=== PATIENT | female | born 1990 | race Caucasian/White ===

== ENCOUNTER 2020-05-24 19:06 | Inpatient (IN) | payer MEDICAID, SELFPAY ==
--- NOTE | 2020-05-24 | ECG_ITS ---
Test Reason : CP Blood Pressure : / mmHG Vent. Rate : 099 BPM Atrial Rate : 099 BPM P-R Int : 130 ms QRS Dur : 082 ms QT Int : 344 ms P-R-T Axes : 043 020 026 degrees QTc Int : 441 ms Normal sinus rhythm Normal ECG When compared with ECG of 28-SEP-2019 07:39, No significant change was found Referred By: Generic ED Physician Electronically Signed By:DAVID ALTMAN MD
--- NOTE | ~2020-05-24 | CT_ITS ---
EXAMINATION: CT ANGIOGRAM OF THE CHEST WITH AND WITHOUT CONTRAST (CT PULMONARY ANGIOGRAM FOR PE) CLINICAL INFORMATION: Reason for Exam Elevated D-dimer, shortness of breath COMPARISON: Radiograph from the same date TECHNIQUE: Prior to contrast administration, noncontrast localization images were obtained. Subsequently, multidetector volumetric imaging was performed from the thoracic inlet to below the diaphragms following the administration of 80 mL Omnipaque 350 intravenous contrast. No contrast reaction reported Sagittal, coronal, and MIP oblique sagittal reformatted images were obtained on the CT workstation, uploaded to PACS, and reviewed. This CT examination was performed using dose optimization techniques as appropriate, variously including the following: *Automated exposure control *Adjustment of mA and/or kV according to patient size (this includes techniques or standardized protocols for targeted exams where dose is matched to indication/reason for exam; i.e. extremities or head) *Use of iterative reconstruction technique Total exam dose-length product 345 mGy-cm FINDINGS: QUALITY OF STUDY/CONTRAST BOLUS: Satisfactory. Assessment is slightly limited by respiratory motion in addition to decreased [id number] is a result of large body habitus. PULMONARY ARTERIES: No central or proximal segmental pulmonary emboli. THORACIC AORTA: No aneurysm or dissection. LUNG: Diffuse patchy rounded consolidative opacities are present throughout both lungs with hazy, groundglass attenuated margins these are more pronounced in the lower lobes. No appreciable central cavitation. Central airways are clear. No appreciable interlobular septal thickening. PLEURA: No pleural effusion or pneumothorax. MEDIASTINUM: Normal heart size. No pericardial effusion. No hilar or mediastinal lymphadenopathy. No evidence of septal bowing or right heart strain. CHEST WALL/AXILLA: No axillary or internal mammary lymphadenopathy. OSSEOUS STRUCTURES: Mild spondylosis is present in the thoracic spine. No acute fracture or malalignment. UPPER ABDOMEN: Unremarkable. No reflux of contrast into the hepatic veins to suggest elevated right heart pressures. CT/CT angio chest PE protocol IMPRESSION: Diffuse around pulmonary opacities throughout both lungs without appreciable cavitation, most likely infectious or inflammatory nature. Septic emboli are on the differential, though less likely without appreciable cavitation no evidence of acute pulmonary emboli. No pleural effusion. VTE: negative
--- NOTE | ~2020-05-24 | XR_ITS ---
EXAMINATION: XR CHEST CLINICAL INFORMATION: Chest pain. COMPARISON: 09/28/2019 chest radiographs. TECHNIQUE: Frontal view of the chest was obtained. FINDINGS: Bilateral patchy infiltrates are seen most pronounced in the right lower lung. The heart and mediastinal structures are unremarkable. XR/XR chest 1V IMPRESSION: Bilateral patchy infiltrates, right greater than left were not seen previously and suggest an acute infectious/inflammatory process
[2020-05-24 19:32] VITALS: BP 125/73; PULSE 102; RESP 20; TEMP 38.1; O2SAT 100; BMI 31.4
[2020-05-24 19:54] VITALS: BP 119/71; PULSE 98; RESP 18; O2SAT 95
--- NOTE | 2020-05-24 19:56 | PC.NURSE ---
UNLABORED AT REST. NSR ON MONITOR. AWAITING PROVIDER. SKIN PWD. LAST MOTRIN 2:30PM
--- NOTE | 2020-05-24 20:10 | ED_ITS ---
HPI - Chest Pain General Chief Complaint: Chest Pain Stated Complaint: Chest pain/SOB Source: patient Mode of arrival: ambulatory Limitations: no limitations History of Present Illness HPI narrative: 29-year-old female with no significant past medical history, diagnosed COVID positive on 05/21/2011 presents with increased shortness of breath, chest pain, chest pain on inspiration, fevers, chills, and intermittent back pain. She states that she has been feeling progressively worse, and cannot catch her breath on minimal exertion. MD complaint: chest pain Onset (ago): day(s) (Since 05/20/2020 however gradually increasing over the past day) Timing of current episode: constant Onset: during rest and during exertion Pain location: lateral Severity: moderate Pain scale (0-10): 7 Quality: tightness and aching Relieving factors: nothing Exacerbating factors: exertion, inspiration and movement Context: recent illness Associated symptoms: diaphoresis, dyspnea, fever and cough Related Data On Oral Contraceptives: No Home Medications Medication Instructions Recorded Confirmed No Known Home Meds 05/25/20 05/25/20 Allergies Allergy/AdvReac Type Severity Reaction Status Date / Time No Known Allergies Allergy Verified 05/24/20 19:31 Review of Systems Review of Systems: Constitutional: positive Fever, positive Chills, positive fatigue, positive Malaise ENT/Mouth: No sore throat, positive runny nose Eyes: No Discharge Cardiovascular: Positive Chest Pain, positive SOB, positive SOB on exertion Respiratory: Positive Cough, No Sputum, positive Wheezing, No Smoke Exposure, No Dyspnea Gastrointestinal: Positive Nausea, No Vomiting, No Diarrhea Genitourinary: no irregular bleeding, No Dysuria, No Urinary Frequency, No Hematuria, No Urinary Incontinence, No Urgency, No Flank Pain, Musculoskeletal: positive Myalgia Skin: No rash Neuro: Positive Headache Yes all other systems are reviewed and are negative PMFSH Past Medical History Attestation statement: The following information was validated with the patient. Source: old records reviewed Medical History Asthma COVID-19 Surgical History H/O tubal ligation Hx of section Social History Social History Alcohol intake: current Alcohol intake frequency: a few times a week Smoked in Last 30 Days: No Use of substances other than those prescribed or required for medical reasons: No Advance Directives: No Advance Directives Information Provided: No Physical Exam Vital Signs: Vital Signs: Last Vital Signs Temp 98.8 F 05/25/20 00:35 Pulse 90 05/25/20 00:35 Resp 18 05/25/20 00:35 BP 115/65 05/25/20 00:35 Pulse Ox 96 05/25/20 00:35 Body Mass Index 31.4 Appearance: Alert. Oriented X3. Moderate distress. Appears ill Eyes: Pupils equal, round and reactive to light. EOMI, sclera nonicteric ENT: Pharynx normal. Moist mucous membranes Neck: Normal inspection. Neck supple. Trachea midline CVS: Tachycardic heart rate and rhythm. Pulses equal to all extremities Respiratory: Mild respiratory distress. Lung sounds expiratory wheezing throughout all lobes. Abdomen: Soft and nontender. Skin: Skin flushed, warm and dry. Normal skin color. Normal skin turgor. Extremities: No lower extremity edema. Moves all extremities against resistance, strength 5/5 Neuro: No motor deficit. No sensory deficit. Cranial nerves 2-12 intact, no focal neural deficit Course Course Course Narrative: 29-year-old female tested positive for COVID-19 on 05/20/2020 presents with worsening shortness of breath, shortness of breath on exertion, lateral chest pain on inspiration, fevers, chills, malaise. Will order COVID la b panel D-dimer, will treat with dexamethasone and Toradol. vital Signs are concerning for sepsis, however patient has a known COVID viral illness will not be fluid resuscitated. D-dimer positive, will order CT PE protocol. CT scan shows multiple opacities consistent with COVID-19 verses septic emboli. Will give ceftriaxone, azithromycin, no fluid resuscitation secondary to COVID- 19 viral infection. 12:28 a.m., discussion with hospitalist regarding plan of care. Plan is to admit for COVID-19, hypoxia and septic emboli Consultations Consultation #1: edmond Time: 00:28 MDM - Chest Pain Differential Diagnosis Differential diagnosis: Likely pneumothorax, atypical chest pain, cost ochondritis and chest pain Differential diagnosis: Pneumonia, PE Medical Records Data Attestation: I reviewed the patient's medical records. Lab Data Attestation: I reviewed the patient's lab results. Result diagrams: 05/24/20 21:12 05/24/20 21:12 Labs: Lab Results 05/24/20 05/24/20 05/24/20 Range/Units 21:12 21:12 21:12 WBC 4.9 (4.8-10.8) X10*3/uL RBC 4.28 (4.20-5.50) X10*6/uL Hgb 13.3 (12.0-16.0) g/dl Hct 38.6 (37-47) % MCV 90.2 (80-98) fL MCH 31.1 (27.0-33.0) pg MCHC 34.5 (31.0-35.0) g/dl RDW 12.9 (11.0-16.0) % Plt Count 117 L (160-400) X10*3/uL MPV 11.2 (9.4-12.3) fL Immature Gran % (Auto) 0.4 (0.0-0.4) % Neut % (Auto) 67.6 (45-73) % Lymph % (Auto) 24.5 (20-40) % [place] % (Auto) 7.3 (2-11) % Eos % (Auto) 0.0 (0-4) % Baso % (Auto) 0.2 (0-2) % Lymph # (Auto) 1.2 (1.2-4.9) X10*3/uL [place] # (Auto) 0.4 (0.1-1.2) X10*3/uL Eos # (Auto) 0.0 (0.0-0.4) X10*3/uL Baso # (Auto) 0.0 (0.0-0.2) X10*3/uL Abs Immat Gran (auto) 0.02 (0.00-0.03) X10*3/uL Absolute Neuts (auto) 3.3 (2.0-8.3) X10*3/uL Absolute Nucleated RBC 0.000 (0.0-0.012) X10*3/uL Nucleated RBC % (auto) 0.0 (0.0-0.2) /100WBC Smear Tech's Comments VERIFIED PT 13.8 H (10.8-13.0) SEC INR 1.2 H (0.9-1.1) APTT 30.3 (24.1-38.0) SEC D-Dimer 372 NG/ML Sodium 136 (135-145) mmol/L Potassium 3.8 (3.3-5.1) mmol/L Chloride 103 (96-108) mmol/L Carbon Dioxide 22 (22-29) mmol/L Anion Gap 15 (12-20) BUN 11 (9-16) mg/dL Creatinine 0.69 (0.5-1.4) mg/dL Estim Creat Clear Calc 152.1 Estimated GFR > 60 Random Glucose 84 (60-115) mg/dL Lactic Acid (0.5-2.0) mmol/L Calcium 8.1 L (8.4-10.2) mg/dL Ferritin 706 H (10-122) ng/mL Total Bilirubin 0.9 (0.0-1.0) mg/dL Direct Bilirubin 0.3 (0.0-0.5) mg/dL AST 95 H (5-31) U/L ALT 122 H (0-31) U/L Alkaline Phosphatase 91 (39-117) U/L Lactate Dehydrogenase 379 H (122-220) U/L C-Reactive Protein 6.30 H (< or = 0.50) mg/dL Total Protein 6.9 (6.5-8.0) g/dL Albumin 3.9 (3.5-5.0) g/dL Lipase 34 (8-78) U/L Procalcitonin ng/mL Urine Color Urine Appearance Urine pH (5.0-8.0) Ur Specific [place] (1.005-1.025) Urine Protein (NEG-TRACE) MG/DL Urine Glucose (UA) (NEG) MG/DL Urine Ketones (NEG) MG/DL Urine Blood (NEG) Urine Nitrite (NEG) Ur Leukocyte Esterase (NEG) 05/24/20 05/24/20 05/25/20 Range/Units 21:12 22:10 00:44 WBC (4.8-10.8) X10*3/uL RBC (4.20-5.50) X10*6/uL Hgb (12.0-16.0) g/dl Hct (37-47) % MCV (80-98) fL MCH (27.0-33.0) pg MCHC (31.0-35.0) g/dl RDW (11.0-16.0) % Plt Count (160-400) X10*3/uL MPV (9.4-12.3) fL Immature Gran % (Auto) (0.0-0.4) % Neut % (Auto) (45-73) % Lymph % (Auto) (20-40) % [place] % (Auto) (2-11) % Eos % (Auto) (0-4) % Baso % (Auto) (0-2) % Lymph # (Auto) (1.2-4.9) X10*3/uL [place] # (Auto) (0.1-1.2) X10*3/uL Eos # (Auto) (0.0-0.4) X10*3/uL Baso # (Auto) (0.0-0.2) X10*3/uL Abs Immat Gran (auto) (0.00-0.03) X10*3/uL Absolute Neuts (auto) (2.0-8.3) X10*3/uL Absolute Nucleated RBC (0.0-0.012) X10*3/uL Nucleated RBC % (auto) (0.0-0.2) /100WBC Smear Tech's Comments PT (10.8-13.0) SEC INR (0.9-1.1) APTT (24.1-38.0) SEC D-Dimer NG/ML Sodium (135-145) mmol/L Potassium (3.3-5.1) mmol/L Chloride (96-108) mmol/L Carbon Dioxide (22-29) mmol/L Anion Gap (12-20) BUN (9-16) mg/dL Creatinine (0.5-1.4) mg/dL Estim Creat Clear Calc Estimated GFR Random Glucose (60-115) mg/dL Lactic Acid 0.6 (0.5-2.0) mmol/L Calcium (8.4-10.2) mg/dL Ferritin (10-122) ng/mL Total Bilirubin (0.0-1.0) mg/dL Direct Bilirubin (0.0-0.5) mg/dL AST (5-31) U/L ALT (0-31) U/L Alkaline Phosphatase (39-117) U/L Lactate Dehydrogenase (122-220) U/L C-Reactive Protein (< or = 0.50) mg/dL Total Protein (6.5-8.0) g/dL Albumin (3.5-5.0) g/dL Lipase (8-78) U/L Procalcitonin 0.07 ng/mL Urine Color YELLOW Urine Appearance CLEAR Urine pH 6.0 (5.0-8.0) Ur Specific [place] 1.025 (1.005-1.025) Urine Protein NEG (NEG-TRACE) MG/DL Urine Glucose (UA) NEG (NEG) MG/DL Urine Ketones 40 (NEG) MG/DL Urine Blood NEG (NEG) Urine Nitrite NEG (NEG) Ur Leukocyte Esterase NEG (NEG) Imaging Data Chest PE: Attestation: I personally reviewed and interpreted this imaging study as follows: Radiologist's impression: EXAMINATION: CT ANGIOGRAM OF THE CHEST WITH AND WITHOUT CONTRAST (CT PULMONARY ANGIOGRAM FOR PE) CLINICAL INFORMATION: Reason for Exam Elevated D-dimer, shortness of breath COMPARISON: Radiograph from the same date TECHNIQUE: Prior to contrast administration, noncontrast localization images were obtained. Subsequently, multidetector volumetric imaging was performed from the thoracic inlet to below the diaphragms following the administration of 80 mL Omnipaque 350 intravenous contrast. No contrast reaction reported Sagittal, coronal, and MIP oblique sagittal reformatted images were obtained on the CT workstation, uploaded to PACS, and reviewed. This CT examination was performed using dose optimization techniques as appropriate, variously including the following: *Automated exposure control *Adjustment of mA and/or kV according to patient size (this includes techniques or standardized protocols for targeted exams where dose is matched to indication/reason for exam; i.e. extremities or head) *Use of iterative reconstruction technique Total exam dose-length product 345 mGy-cm FINDINGS: QUALITY OF STUDY/CONTRAST BOLUS: Satisfactory. Assessment is slightly limited by respiratory motion in addition to decreased [id number] is a result of large body habitus. PULMONARY ARTERIES: No central or proximal segmental pulmonary emboli. THORACIC AORTA: No aneurysm or dissection. LUNG: Diffuse patchy rounded consolidative opacities are present throughout both lungs with hazy, groundglass attenuated margins these are more pronounced in the lower lobes. No appreciable central cavitation. Central airways are clear. No appreciable interlobular septal thickening. PLEURA: No pleural effusion or pneumothorax. MEDIASTINUM: Normal heart size. No pericardial effusion. No hilar or mediastinal lymphadenopathy. No evidence of septal bowing or right heart strain. CHEST WALL/AXILLA: No axillary or internal mammary lymphadenopathy. OSSEOUS STRUCTURES: Mild spondylosis is present in the thoracic spine. No acute fracture or malalignment. UPPER ABDOMEN: Unremarkable. No reflux of contrast into the hepatic veins to suggest elevated right heart pressures. CT/CT angio chest PE protocol IMPRESSION: Diffuse around pulmonary opacities throughout both lungs without appreciable cavitation, most likely infectious or inflammatory nature. Septic emboli are on the differential, though less likely without appreciable cavitation no evidence of acute pulmonary emboli. No pleural effusion. VTE: negative Chest x-ray: Attestation: I personally reviewed and interpreted this imaging study as follows: Radiologist's impression: EXAMINATION: XR CHEST CLINICAL INFORMATION: Chest pain. COMPARISON: 09/28/2019 chest radiographs. TECHNIQUE: Frontal view of the chest was obtained. FINDINGS: Bilateral patchy infiltrates are seen most pronounced in the right lower lung. The heart and mediastinal structures are unremarkable. XR/XR chest 1V IMPRESSION: Bilateral patchy infiltrates, right greater than left were not seen previously and suggest an acute infectious/inflammatory process ECG Data ECG #1: Attestation: I personally reviewed and interpreted this ECG as follows: ECG interpretation date: 05/24/20 ECG interpretation time: 19:50 Interpretation: Vent. rate 99 BPM VT interval 130 ms QRS duration 82 ms QT/QTc 344/441 ms P-R-T axes 43 20 26 Normal sinus rhythm Normal ECG When compared with ECG of 28-SEP-2019 07:39, No significant change was found Critical Care Time Critical Care Time Critical Care Time: Yes Total Critical Care Time: 60 Attestation: I have personally provided critical care time exclusive of time spent on separately billable procedures. Time includes review of laboratory data, radiology results, discussion with consultants, and monitoring for potential decompensation. Interventions were performed as documented. Discharge Plan Discharge Clinical Impression: Pneumonia due to COVID-19 virus, Septic embolism Patient Disposition: Admitted As Inpatient Prescriptions: No Action No Known Home Meds RF: 0
[2020-05-24 21:04] VITALS: BP 125/78; PULSE 95; RESP 26; O2SAT 99
[2020-05-24 21:21] LABS: Basophils Percent Auto 0.2 % (0-2); Imm Gran Abs Auto 0.02 X10*3/uL (0.00-0.03); Imm Gran Pct Auto 0.4 % (0.0-0.4); MANUAL DIFF FLAG SCAN; PLT CLUMP 1; SCAN SMEAR FLAG 1
[2020-05-24] MEDS: Ketorolac Tromethamine 30 MG/ML VIAL IVPUSH (21:22)
[2020-05-24 21:23] LABS: Hematocrit 38.6 % (37-47); Hemoglobin 13.3 g/dl (12.0-16.0); Lymphocytes Absolute Auto 1.2 X10*3/uL (1.2-4.9); Lymphocytes Percent Auto 24.5 % (20-40); Mean Corpuscular HGB Conc 34.5 g/dl (31.0-35.0); Mean Corpuscular Hemoglobin 31.1 pg (27.0-33.0); Mean Corpuscular Volume 90.2 fL (80-98); Mean Platelet Volume 11.2 fL (9.4-12.3); Monocytes Absolute Auto 0.4 X10*3/uL (0.1-1.2); Monocytes Percent Auto 7.3 % (2-11); Neutrophils Absolute Auto 3.3 X10*3/uL (2.0-8.3); Neutrophils Percent Auto 67.6 % (45-73); Red Blood Count 4.28 X10*6/uL (4.20-5.50); Red Cell Distribution Width 12.9 % (11.0-16.0); White Blood Count 4.9 X10*3/uL (4.8-10.8)
[2020-05-24] MEDS: dexAMETHasone sod phosphate 4 MG/ML VIAL 6 MG IVPUSH (21:23)
--- NOTE | 2020-05-24 21:23 | PC.NURSE ---
PT IN NO9 DISTRESS, SPO2 99% ROOM AIR AND PT IN A SUPINE POSITION. PT GIVEN WATER TO HYDRATE, AND TO OBTAIN URINE SAMPLE.
[2020-05-24 21:24] LABS: Platelet Count 117 X10*3/uL (160-400)
[2020-05-24 21:26] LABS: INTERNATIONAL NORM RATIO 1.2 (0.9-1.1); Prothrombin Time 13.8 SEC (10.8-13.0)
[2020-05-24 21:29] LABS: D Dimer 372 NG/ML; Partial Thromboplastin Time 30.3 SEC (24.1-38.0)
[2020-05-24 21:48] LABS: SLIDE REVIEW VERIFIED
[2020-05-24 21:50] LABS: Alanine Aminotransferase 122 U/L (0-31); Albumin Level 3.9 g/dL (3.5-5.0); Alkaline Phosphatase 91 U/L (39-117); Anion Gap 15 (12-20); Aspartate Amino Transferase 95 U/L (5-31); Bilirubin Direct 0.3 mg/dL (0.0-0.5); Bilirubin Total 0.9 mg/dL (0.0-1.0); Blood Urea Nitrogen 11 mg/dL (9-16); Calcium 8.1 mg/dL (8.4-10.2); Carbon Dioxide 22 mmol/L (22-29); Chloride 103 mmol/L (96-108); Creatinine Clr Calc Pharmacy 152.1; Estimated Glomerular Filt Rate > 60; Glucose Random 84 mg/dL (60-115); Lactate Dehydrogenase 379 U/L (122-220); Lipase 34 U/L (8-78); Potassium 3.8 mmol/L (3.3-5.1); Sodium 136 mmol/L (135-145); Total Protein 6.9 g/dL (6.5-8.0)
[2020-05-24 22:08] VITALS: BP 111/70; PULSE 109; RESP 21; TEMP 37.6; O2SAT 98
[2020-05-24 22:10] LABS: Ferritin 706 ng/mL (10-122)
[2020-05-24 22:13] LABS: Procalcitonin 0.07 ng/mL
[2020-05-24 22:24] LABS: Glucose Urine UA NEG (NEG); Leukocyte Esterase Urine NEG (NEG); Nitrite Urine NEG (NEG); Specific Gravity - Urine 1.025 (1.005-1.025); Urine Blood NEG (NEG); Urine Ketones 40 MG/DL (NEG); Urine Protein NEG (NEG-TRACE)
[2020-05-24 22:26] LABS: Appearance Urine CLEAR; Color Urine YELLOW
[2020-05-25] VITALS (8 sets, daily range): BP systolic 109–129; BP diastolic 65–78; PULSE 63–90; RESP 16–20; TEMP 36.4–37.2; O2SAT 95–97
--- NOTE | 2020-05-25 00:34 | P.HPHOSP_ITS ---
History of Present Illness Date of Service: 05/25/20 Chief Complaint: Chest pain 29-year-old female with a past medical history of asthma presented to the hospital with a chief complaint of chest pain. Patient mentioned that she has been having shortness of breath, was diagnosed with COVID-19 pneumonia on 05/20/2020; lately noted to have increased shortness of breath and dyspnea on exertion. Mentions that she has tired. Reports that her chest pain is sharp in nature, worsens with deep inspiration. Denies any numbness tingling. Reports cough. Denies any diarrhea. Review of all other systems is negative except mentioned above ER course: Per ER team patient was noted to be tachycardic and have low-grade temperatures. CT scan showed opacities concern for septic emboli; no evidence of pulmonary embolism. Patient was given ceftriaxone azithromycin and dexamethasone. Admitted to the hospital for further management. ER team and also mentioned that patient denied any IV drug abuse except for remote use of weeping. REPLACED BY [facility] Medical History Asthma COVID-19 Surgical History H/O tubal ligation Hx of section Social History Alcohol intake: current Alcohol intake frequency: a few times a week Smoked in Last 30 Days: No Use of substances other than those prescribed or required for medical reasons: No Advance Directives: No Advance Directives Information Provided: No Meds Allergies Allergy/AdvReac Type Severity Reaction Status Date / Time No Known Allergies Allergy Verified 05/24/20 19:31 Active Medications: Current Medications Generic Name Dose Route Start Last Admin Trade Name Freq PRN Reason Stop Dose Admin Acetaminophen 650 mg 05/25/20 00:28 Acetaminophen 325 Mg Tablet PO Q6H PRN Pain, Mild (Pain Scale 1-3) Albuterol Sulfate 4 puff 05/25/20 00:31 Albuterol Sulfate 90 Mcg 8 Gm Inhaler INHALE Q2H PRN Shortness of Breath/Wheezing Azithromycin 500 mg 05/25/20 00:30 Azithromycin 500 Mg Tablet PO Q24H BERT Dexamethasone 6 mg 05/25/20 09:00 Dexamethasone 6 Mg Tablet PO DAILY BERT Enoxaparin Sodium 40 mg 05/25/20 00:30 Enoxaparin Sodium 40 Mg/0.4 Ml Syringe SUBCUT Q24H BERT Ceftriaxone Sodium 1 gm/ 50 mls @ 100 mls/hr 05/25/20 00:20 Sodium Chloride IV 05/25/20 00:49 ONCE ONE Ceftriaxone Sodium 1 gm/ 50 mls @ 100 mls/hr 05/25/20 00:30 Sodium Chloride IV Q24H BERT Senna 17.2 mg 05/25/20 00:28 Sennosides 8.6 Mg Tablet PO BEDTIME PRN Constipation Sodium Chloride 3 ml 05/25/20 08:00 0.9 % Sodium Chloride Flush 3 Ml Syringe IVFLUSH QSHIFT [facility] Home Medications Medication Instructions Recorded Confirmed Last Taken Type No Known Home Meds 05/25/20 05/25/20 Unknown History Physical Exam Vital Signs and Narrative: Vital Signs: Last Vital Signs Temp 99.7 F 05/24/20 22:08 Pulse 109 H 05/24/20 22:08 Resp 21 H 05/24/20 22:08 BP 111/70 05/24/20 22:08 Pulse Ox 98 05/24/20 22:08 Body Mass Index 31.4 Gen: Appears be in no acute distress HEENT: NCAT, Moist mucosa. Pulmonary: Course breath sounds, fair air entry CVS: Normal S1-S2 Abdomen: BS+, Soft, Nontender Extremities: Warm well perfused Neuro: Alert and awake. Results Labs CBC and Chem 7: 05/24/20 21:12 05/24/20 21:12 Labs: Laboratory Results - last 24 hr 05/24/20 05/24/20 05/24/20 21:12 21:12 21:12 MCV 90.2 MCH 31.1 MCHC 34.5 RDW 12.9 Plt Count 117 L MPV 11.2 Immature Gran % (Auto) 0.4 Neut % (Auto) 67.6 Lymph % (Auto) 24.5 [place] % (Auto) 7.3 Eos % (Auto) 0.0 Baso % (Auto) 0.2 Lymph # (Auto) 1.2 [place] # (Auto) 0.4 Eos # (Auto) 0.0 Baso # (Auto) 0.0 Abs Immat Gran (auto) 0.02 Absolute Neuts (auto) 3.3 Absolute Nucleated RBC 0.000 Nucleated RBC % (auto) 0.0 Smear Tech's Comments VERIFIED PT 13.8 H INR 1.2 H APTT 30.3 D-Dimer 372 Anion Gap 15 Estim Creat Clear Calc 152.1 Estimated GFR > 60 Random Glucose 84 Calcium 8.1 L Ferritin 706 H Total Bilirubin 0.9 Direct Bilirubin 0.3 AST 95 H ALT 122 H Alkaline Phosphatase 91 Lactate Dehydrogenase 379 H C-Reactive Protein 6.30 H Total Protein 6.9 Albumin 3.9 Lipase 34 Procalcitonin Urine Color Urine Appearance Urine pH Ur Specific [place] Urine Protein Urine Glucose (UA) Urine Ketones Urine Blood Urine Nitrite Ur Leukocyte Esterase 05/24/20 05/24/20 21:12 22:10 MCV MCH MCHC RDW Plt Count MPV Immature Gran % (Auto) Neut % (Auto) Lymph % (Auto) [place] % (Auto) Eos % (Auto) Baso % (Auto) Lymph # (Auto) [place] # (Auto) Eos # (Auto) Baso # (Auto) Abs Immat Gran (auto) Absolute Neuts (auto) Absolute Nucleated RBC Nucleated RBC % (auto) Smear Tech's Comments PT INR APTT D-Dimer Anion Gap Estim Creat Clear Calc Estimated GFR Random Glucose Calcium Ferritin Total Bilirubin Direct Bilirubin AST ALT Alkaline Phosphatase Lactate Dehydrogenase C-Reactive Protein Total Protein Albumin Lipase Procalcitonin 0.07 Urine Color YELLOW Urine Appearance CLEAR Urine pH 6.0 Ur Specific [place] 1.025 Urine Protein NEG Urine Glucose (UA) NEG Urine Ketones 40 Urine Blood NEG Urine Nitrite NEG Ur Leukocyte Esterase NEG Imaging Radiologist's Impressions: Impressions Chest X-Ray 05/24/20 19:40 IMPRESSION: Bilateral patchy infiltrates, right greater than left were not seen previously and suggest an acute infectious/inflammatory process Chest CTA 05/24/20 21:54 IMPRESSION: Diffuse around pulmonary opacities throughout both lungs without appreciable cavitation, most likely infectious or inflammatory nature. Septic emboli are on the differential, though less likely without appreciable cavitation no evidence of acute pulmonary emboli. No pleural effusion. VTE: negative Assessment and Plan (1) Pneumonia due to COVID-19 virus: Status: Acute 29-year-old female with a past medical history of asthma presented to the hospital with a chief complaint of shortness of breath/chest pain. Chest pain: Atypical in nature. Pleuritic. CT showed no evidence of PE. Noted pulmonary opacities concern for septic emboli. Troponins negative EKG nonischemic COVID-19 pneumonia: Continue ceftriaxone, azithromycin, dexamethasone. Supplemental oxygen p.r.n.. Id consult for further recommendations. Abnormal CT chest: Findings concerning for septic emboli. Will consult pulmonology as well. DVT prophylaxis: Lovenox Code status: Full code
--- NOTE | 2020-05-25 00:37 | PC.NURSE ---
PT PLACED ON 2 LPM 02 VIA NC PER REQUEST OF PROVIDER. PT DENIES DYSPNEA WHILE SEATED IN BED.
[2020-05-25] MEDS: Azithromycin 500 MG TABLET PO ×2 (01:06→20:43)
[2020-05-25] MEDS: cefTRIAXone sodium 1 GM in 0.9 % Sodium Chloride 50 ML IV (01:07)
[2020-05-25 01:17] LABS: Lactic Acid 0.6 mmol/L (0.5-2.0)
--- NOTE | 2020-05-25 01:37 | PC.NURSE ---
PT 100% ON 2 LPM NC. HOSPITALIST WANTS OXYGEN DC'D. PT'S CAN BE ROOM AIR UNLESS SPO2 LESS THAN 95%.
[2020-05-25 02:09] LABS: COVID-19 Test Positive (Negative)
[2020-05-25] MEDS: Enoxaparin Sodium 40 MG/0.4 ML SYRINGE SUBCUT (02:09)
--- NOTE | 2020-05-25 03:44 | PC.NURSE ---
PT UNDERSTANDS THAT SHE WILL BE ADMITTED TO FLOOR, BUT MAY NOT HAVE A ROOM ASSIGNMENT UNTIL 7AM. PT OFFERED SODA, JUICE AND WATER BUT NOT INTERESTED IN ANYTHING TO EAT OR DRINK. PT WAS GIVEN 8OZ WATER EARLIER, BUT ONLY FINISHED 4 OZ.
--- NOTE | 2020-05-25 07:06 | PC.NURSE ---
REPORT GIVEN TO RN ON FLOOR, PT READY FOR TRANSPORT. PT ENCOURAGE TO CONTINUE TO HYDRATE. PT ASKED FOR 2 CONTAINERS OF OJ, NOT INTERESTED IN FOOD.
[2020-05-25] MEDS: dexAMETHasone 6 MG TABLET PO (08:24)
[2020-05-25] MEDS: 0.9 % Sodium Chloride Flush 3 ML SYRINGE IVFLUSH ×2 (08:24→15:13)
--- NOTE | 2020-05-25 09:13 | MHC.CM.PN ---
Female 29 dx Covid+ She lives with family. She is independent with all functional mobility. A HCP has been documented, and placed on the chart. DP home no services family transport. CM will follow to assess for a change in the discharge needs.
[2020-05-25 09:33] LABS: MANUAL DIFF FLAG NO
[2020-05-25 09:46] LABS: Hemoglobin 14.2 g/dl (12.0-16.0); Imm Gran Abs Auto 0.01 X10*3/uL (0.00-0.03); Imm Gran Pct Auto 0.3 % (0.0-0.4); Lymphocytes Absolute Auto 0.8 X10*3/uL (1.2-4.9); Lymphocytes Percent Auto 28.3 % (20-40); Mean Corpuscular Volume 90.7 fL (80-98); Monocytes Absolute Auto 0.2 X10*3/uL (0.1-1.2); Monocytes Percent Auto 7.2 % (2-11); Neutrophils Absolute Auto 1.9 X10*3/uL (2.0-8.3); Neutrophils Percent Auto 64.2 % (45-73); Platelet Count 143 X10*3/uL (160-400); Red Blood Count 4.74 X10*6/uL (4.20-5.50); Red Cell Distribution Width 12.8 % (11.0-16.0); White Blood Count 2.9 X10*3/uL (4.8-10.8)
[2020-05-25 10:09] LABS: Anion Gap 12 (12-20); Blood Urea Nitrogen 12 mg/dL (9-16); Calcium 8.4 mg/dL (8.4-10.2); Carbon Dioxide 27 mmol/L (22-29); Chloride 103 mmol/L (96-108); Creatinine Clr Calc Pharmacy 141.8; Estimated Glomerular Filt Rate > 60; Glucose Random 158 mg/dL (60-115); Magnesium 2.4 mg/dL (1.6-2.6); Potassium 4.7 mmol/L (3.3-5.1); Sodium 137 mmol/L (135-145)
--- NOTE | 2020-05-25 10:30 | CA_ITS ---
Transthoracic Echocardiogram Patient (Last, First, Middle): Mendez Marie, Gender: Female Date of : 1990 Age: 29 Procedure Date: 05/25/2020 Procedure Type: Transthoracic Echocardiogram Location: [facility] [place] Height: 177.8 cm Weight: 99.34 kg BSA: 2.17 m2 Heart Rate: bpm BP: 115 / 65 mmHg Correctional Cook: Referring MD: Tony Green MD Light Rail Train Operator: Elvis Davis MD Symptoms: covid; ?septic emboli; ?vegetation Study Quality: Fair ECG Rhythm: Sinus Conclusions: - 1. No clear vegetations seen on this study, however valves are not completely well visualized. 2. Normal LV systolic and diastolic function 3. Normal cardiac valvular Doppler 4. Normal RV systolic pressure 5. No gross pericardial effusion Findings Left Ventricle Normal left ventricular size, thickness, and systolic function. The visually estimated ejection fraction is between 55-60%. Diastolic function is normal for age. Right Ventricle Normal right ventricular cavity size and systolic function. Atria Both atria are normal in size. Interatrial shunt cannot be excluded. Aortic Valve The aortic valve was not well visualized. There is no aortic valve stenosis. There is no aortic valve regurgitation. Mitral Valve Likely normal mitral valve structure and function. There is trace mitral valve regurgitation. There is no mitral valve stenosis. Pulmonic Valve The pulmonic valve was not well visualized. Tricuspid Valve The tricuspid valve was not well visualized. There is trace tricuspid valve regurgitation. The right ventricular systolic pressure is normal. The right ventricular systolic pressure is 23 mmHg. Normal right atrial pressure. There is no evidence of pulmonary hypertension. Great Vessels All visible segments of the aorta are normal in size. The pulmonary artery was not well visualized. Venous The inferior vena cava is normal in size and collapses greater than 50% with inspiration. Pericardium/Pleural There is no evidence of pericardial effusion. Prior Study Comparison No prior study available for comparison. Recommendations, Care & Conclusions Consider a AMRITA if clinically appropriate. Measurements 2D Linear Measurements IVSd: 0.90 0.6-0.9/0.6-1.0 cm LVIDd: 5.15 3.9-5.3/4.2-5.9 cm LVIDd Index: 2.37 2.4-3.2/2.2-3.1 cm/m2 LVIDs: 3.65 2.0-3.6 cm LVPWd: 0.98 0.7-1.1 cm Ao Root: 3.20 2.1-3.5 cm LA Diam: 3.50 2.7-3.8/3.0-4.0 cm LAIDs Index: 1.61 1.5-2.3 cm/m2 LV Mass: 219.12 67-162/88-224 g LV Mass Index: 100.98 43-95/49-115 g/m2 LVOT Diam: 2.20 3.0+(-)1.3 cm 2D Systolic Function EF 4C: 56.40 >55% EF 2C: 50.10 >55% Mitral Valve MV Pk E: 0.84 MV PK A: 0.65 MV Decel Time: 222.00 E/A: 1.30 E'Lateral: 13.20 E'Medial: 9.86 E/E' Med: 8.50 E/E' Lat: 6.40 PHT: 65.00 MVA PHT: 3.38 Decel [place]: 3.78 Aortic Valve AoV Pk Corey: 1.41 AoV Mn Corey: 0.90 AoV VTI: 0.28 AoV Pk Grad: 8.00 Aov Mn Grad: 4.00 CLARA Cont.VTI: 3.11 LVOT LVOT Pk Corey: 1.20 LVOT Mn Corey: 0.73 LVOT VTI: 0.23 LVOT Pk Grad: 6.00 LVOT Mn Grad: 3.00 LVOT Diam: 2.20 LVOT Area: 3.80 Diastolic Function MV Pk E: 0.84 MV Pk A: 0.65 E/A: 1.30 E'Medial: 9.86 E/E' Med: 8.50 E' Laterial: 13.20 E/E' Lat: 6.40 Tricuspid Valve TR Pk Corey: 2.21 TR Pk Grad: 20.00 RA Press: 3.00 RVSP: 23.00 Great Vessels Aorta Ao Root-2D: 3.20 2.0-3.7 cm Ao Asc: 2.90 2.1-3.4 cm Pulmonary Valve PV Pk Corey: 0.95 Peak PV Grad: 4.00 Updated in Other Vendor System with Status of Final Elvis Davis MD electronically signed on 05/25/2020 5:10:10 PM with status of Final
[2020-05-25 13:15] LABS: Amphetamine Screen Urine Not Detected (Not Detect); Barbiturates, Urine Not Detected (Not Detect); Benzodiazepines Screen Urine Not Detected (Not Detect); Cannabinoid Screen Urine Not Detected (Not Detect); Cocaine Screen Urine Not Detected (Not Detect); Opiate Screen Urine Not Detected (Not Detect); Phencyclidine Screen Urine Not Detected (Not Detect)
--- NOTE | 2020-05-25 15:20 | HO.PM.IMPN ---
Subjective Subjective Date of Service: 05/25/20 Interval History: Patient seen and examined at bedside Reported chest pain improved Reported cough and shortness of breath Review of Systems Constitutional: positive Fever, positive Chills, positive fatigue, positive Malaise ENT/Mouth: No sore throat, positive runny nose Eyes: No Discharge Cardiovascular: Positive Chest Pain, positive SOB, positive SOB on exertion Respiratory: Positive Cough, No Sputum, positive Wheezing, No Smoke Exposure, No Dyspnea Gastrointestinal: Positive Nausea, No Vomiting, No Diarrhea Genitourinary: no irregular bleeding, No Dysuria, No Urinary Frequency, No Hematuria, No Urinary Incontinence, No Urgency, No Flank Pain, Musculoskeletal: positive Myalgia Skin: No rash Neuro: Positive Headache Physical Exam Vital Signs: Vital Signs: Last Vital Signs Temp 98.7 F 05/25/20 15:07 Pulse 85 05/25/20 15:07 Resp 20 05/25/20 15:07 BP 109/67 05/25/20 15:07 Pulse Ox 95 05/25/20 15:07 Body Mass Index 31.4 Const: General: no acute distress and anxious Orientation/consciousness: patient oriented x3 Chest: Chest palpation & inspection: normal inspection of the chest Resp: Auscultation: rhonchi Cardio: Jugular venous distension: no JVD Heart sounds: S1 normal heart sound present GI: Palpation (GI): Soft to palpation Skin: General skin exam: no rashes or lesions noted Neuro: General: patient oriented x3 Objective Data Current Medications Generic Name Dose Route Start Last Admin Trade Name Freq PRN Reason Stop Dose Admin Acetaminophen 650 mg 05/25/20 00:28 Acetaminophen 325 Mg Tablet PO Q6H PRN Pain, Mild (Pain Scale 1-3) Albuterol Sulfate 4 puff 05/25/20 00:31 Albuterol Sulfate 90 Mcg 8 Gm Inhaler INHALE Q2H PRN Shortness of Breath/Wheezing Azithromycin 500 mg 05/25/20 21:00 Azithromycin 500 Mg Tablet PO Q24H BERT Dexamethasone 6 mg 05/25/20 09:00 05/25/20 08:24 Dexamethasone 6 Mg Tablet PO 6 mg DAILY BERT Administration Enoxaparin Sodium 40 mg 05/25/20 01:00 05/25/20 02:09 Enoxaparin Sodium 40 Mg/0.4 Ml Syringe SUBCUT 40 mg Q24H BERT Administration Ceftriaxone Sodium 1 gm/ 50 mls @ 100 mls/hr 05/26/20 01:00 Sodium Chloride IV Q24H BERT Senna 17.2 mg 05/25/20 00:28 Sennosides 8.6 Mg Tablet PO BEDTIME PRN Constipation Sodium Chloride 3 ml 05/25/20 08:00 05/25/20 15:13 0.9 % Sodium Chloride Flush 3 Ml Syringe IVFLUSH 3 ml QSHIFT BERT Administration Labs CBC & Chem 7: 05/25/20 09:20 05/25/20 09:20 Assessment and Plan (1) Pneumonia due to COVID-19 virus: Status: Acute Assessment and Plan: 29-year-old female with a past medical history of asthma presented to the hospital with a chief complaint of shortness of breath/chest pain. COVID-19 pneumonia: Continue ceftriaxone, azithromycin Continue dexamethasone. Continue Supplemental oxygen p.r.n.. Id consult pending Chest pain: Atypical in nature. Pleuritic. From pneumonia CT showed no evidence of PE. Noted pulmonary opacities concern for septic emboli. Troponins negative EKG nonischemic Abnormal CT chest: Findings concerning for septic emboli. Continue IV antibiotic Pulmonology consult pending Will check urine toxicology DVT prophylaxis: Lovenox Code status: Full code
--- NOTE | 2020-05-25 15:22 | P.CNID_ITS ---
History of Present Illness Data of Consult Service Date: 05/25/20 Requesting physician: Oleg Kaufman Primary Care Provider: Melonie Garcia NP HPI Reason for consult: pneumonia,COVID She presents to hospital with worsening shortness of breath. She had friend positive for COVID and patient tested positive on 05/20 She has no fever or chills at this time She was briefly hypoxic to 88% overnight She is on room air now Review of Systems 2 Review of Systems: Yes all other systems are reviewed and are negative [facility] Past Medical History Medical History Asthma COVID-19 Family History Family history: reviewed and not pertinent Surgical History Surgical History H/O tubal ligation Hx of section Social History Social History Household Members: Family Housing: House Do you presently have visiting nurse or other home services: No Alcohol intake: current Alcohol intake frequency: a few times a week Smoking Status: Current every day smoker Tobacco Type: E-Cigarette Smoked in Last 30 Days: No Smoking Quit Date: 05/16/20 Patient Interested in Nicotine Replacement: No Use of substances other than those prescribed or required for medical reasons: No Currently Displaying Signs/Symptoms of Drug Intoxication Withdrawal: No Any prior treatment program specific to substance use: No Have you been hit, kicked, punched, or otherwise hurt by someone within the past year? If so, by whom?: No Do you feel safe in your current relationship?: Yes Is there a partner from a previous relationship who is making you feel unsafe now?: No Are you made to feel afraid or neglected: No Scientologist Healthcare Practices: Voodoo Advance Directives: No Advance Directives Information Provided: No Do you have thoughts of harming others: None Recently lost weight without trying: No service: No Current occupational status: employed Meds Allergies Allergy/AdvReac Type Severity Reaction Status Date / Time No Known Allergies Allergy Verified 05/24/20 19:31 Active Medications: Current Medications Generic Name Dose Route Start Last Admin Trade Name Freq PRN Reason Stop Dose Admin Acetaminophen 650 mg 05/25/20 00:28 Acetaminophen 325 Mg Tablet PO Q6H PRN Pain, Mild (Pain Scale 1-3) Albuterol Sulfate 4 puff 05/25/20 00:31 Albuterol Sulfate 90 Mcg 8 Gm Inhaler INHALE Q2H PRN Shortness of Breath/Wheezing Azithromycin 500 mg 05/25/20 21:00 Azithromycin 500 Mg Tablet PO Q24H BERT Dexamethasone 6 mg 05/25/20 09:00 05/25/20 08:24 Dexamethasone 6 Mg Tablet PO 6 mg DAILY BERT Administration Enoxaparin Sodium 40 mg 05/25/20 01:00 05/25/20 02:09 Enoxaparin Sodium 40 Mg/0.4 Ml Syringe SUBCUT 40 mg Q24H BERT Administration Senna 17.2 mg 05/25/20 00:28 Sennosides 8.6 Mg Tablet PO BEDTIME PRN Constipation Sodium Chloride 3 ml 05/25/20 08:00 05/25/20 15:13 0.9 % Sodium Chloride Flush 3 Ml Syringe IVFLUSH 3 ml QSHIFT BERT Administration Home Medications Medication Instructions Recorded Confirmed Last Taken Type No Known Home Meds 05/25/20 05/25/20 Unknown History Physical Exam Vital Signs: Vital Signs: Last Vital Signs Temp 98.7 F 05/25/20 15:07 Pulse 85 05/25/20 15:07 Resp 20 05/25/20 15:07 BP 109/67 05/25/20 15:07 Pulse Ox 95 05/25/20 15:07 Body Mass Index 31.4 Const: General: cooperative HENMT: Head: Yes normal to inspection Mouth: Normal oral and palatal mucosa present Eyes: General: appearance normal, both eyes and all related structures Resp: Effort & Inspection: normal respiratory effort Cardio: Rate: regular rate Rhythm: regular rhythm GI: Palpation (GI): nontender Skin: General skin exam: no rashes or lesions noted Results Labs CBC & Chem 7: 05/25/20 09:20 05/25/20 09:20 Labs: Short CBC 05/24/20 05/24/20 05/25/20 Range/Units 21:12 21:12 09:20 WBC 4.9 2.9 L (4.8-10.8) X10*3/uL Hgb 13.3 14.2 (12.0-16.0) g/dl Hct 38.6 43.0 (37-47) % Plt Count 117 L 143 L (160-400) X10*3/uL Procalcitonin 0.07 ng/mL BMP 05/24/20 05/25/20 21:12 09:20 Sodium 136 137 Potassium 3.8 4.7 D Chloride 103 103 Carbon Dioxide 22 27 BUN 11 12 Creatinine 0.69 0.74 Calcium 8.1 L 8.4 Liver Function 05/24/20 Range/Units 21:12 Total Bilirubin 0.9 (0.0-1.0) mg/dL Direct Bilirubin 0.3 (0.0-0.5) mg/dL AST 95 H (5-31) U/L ALT 122 H (0-31) U/L Alkaline Phosphatase 91 (39-117) U/L Albumin 3.9 (3.5-5.0) g/dL Urine 05/24/20 Range/Units 22:10 Urine Color YELLOW Urine Appearance CLEAR Urine pH 6.0 (5.0-8.0) Ur Specific [place] 1.025 (1.005-1.025) Urine Protein NEG (NEG-TRACE) MG/DL Urine Glucose (UA) NEG (NEG) MG/DL Assessment and Plan (1) Pneumonia due to COVID-19 virus: Problem details: She is on room air There are no signs of bacterial infection and procalcitonin is .07 Status: Acute No remdesivir indicated Steroids may be given but not clearly indicated Stop Ceftriaxone (2) Septic embolism: Problem details: No PE ,no bacteremia so no septic emboli seen Status: Acute Anticoagulation as indicated for VTE
[2020-05-26] MEDS: Enoxaparin Sodium 40 MG/0.4 ML SYRINGE SUBCUT (00:30)
[2020-05-26] MEDS: 0.9 % Sodium Chloride Flush 3 ML SYRINGE IVFLUSH ×4 (00:30→22:43)
[2020-05-26 03:53] VITALS: BP 123/75; PULSE 73; RESP 18; TEMP 36.8; O2SAT 94
[2020-05-26 07:47] VITALS: BP 120/72; PULSE 80; RESP 18; TEMP 37.4; O2SAT 96
[2020-05-26 09:42] VITALS: TEMP 37.4
[2020-05-26] MEDS: dexAMETHasone 6 MG TABLET PO (09:50)
[2020-05-26] MEDS: Acetaminophen 325 MG TABLET 650 MG PO ×2 (09:50→15:54)
[2020-05-26 11:25] VITALS: BP 113/58; PULSE 88; RESP 18; TEMP 37.2; O2SAT 94
[2020-05-26 12:01] VITALS: BMI 31.4
--- NOTE | 2020-05-26 13:39 | P.EN_ITS ---
Event Note Date of Service: 05/26/20 Event Note: This 29 years old female patient was seen by me for pulmonary cons ultation. Patient interviewed and examined. Lab and radiologic findings are reviewed. Complete note is dictated. Impression: Acute COVID 19 infection COVID related pneumonitis, but clinically patient does not have significant hypoxemia. Recommendation : Completed the course of dexamethasone, if she remains stable for 1 or 2 more days she can be discharged home on oral dexamethasone 6 mg a day For a total course of 10 days. She needs to be watched closely at least for the 9 following 1 week, because respiratory status may sometimes worsen, due to acute inflammatory phase. She will need to to have a repeat CT scan in about 2 weeks for follow-up.
--- NOTE | 2020-05-26 14:44 | P.PNIM_ITS ---
Subjective Subjective Date of Service: 05/26/20 Interval History: Patient seen and examined at bedside Reported cough and shortness of breath Review of Systems Constitutional: positive Fever, positive Chills, positive fatigue, positive [place]ise ENT/Mouth: No sore throat, positive runny nose Eyes: No Discharge Cardiovascular: Positive Chest Pain, positive SOB, positive SOB on exertion Respiratory: Positive Cough, No Sputum, positive Wheezing, No Smoke Exposure, No Dyspnea Gastrointestinal: Positive Nausea, No Vomiting, No Diarrhea Genitourinary: no irregular bleeding, No Dysuria, No Urinary Frequency, No Hematuria, No Urinary Incontinence, No Urgency, No Flank Pain, Musculoskeletal: positive Myalgia Skin: No rash Neuro: Positive Headache Physical Exam Vital Signs: Vital Signs: Last Vital Signs Temp 99 F 05/26/20 11:25 Pulse 88 05/26/20 11:25 Resp 18 05/26/20 11:25 BP 113/58 L 05/26/20 11:25 Pulse Ox 94 05/26/20 11:25 Body Mass Index 31.4 Const: General: no acute distress and anxious Orientation/consciousness: patient oriented x3 Chest: Chest palpation & inspection: normal inspection of the chest Resp: Auscultation: rhonchi Cardio: Jugular venous distension: no JVD Heart sounds: S1 normal heart sound present GI: Palpation (GI): Soft to palpation Skin: General skin exam: no rashes or lesions noted Neuro: General: patient oriented x3 Objective Data Current Medications Generic Name Dose Route Start Last Admin Trade Name Freq PRN Reason Stop Dose Admin Acetaminophen 650 mg 05/25/20 00:28 05/26/20 09:50 Acetaminophen 325 Mg Tablet PO 650 mg Q6H PRN Administration Pain, Mild (Pain Scale 1-3) Albuterol Sulfate 4 puff 05/25/20 00:31 Albuterol Sulfate 90 Mcg 8 Gm Inhaler INHALE Q2H PRN Shortness of Breath/Wheezing Azithromycin 500 mg 05/25/20 21:00 05/25/20 20:43 Azithromycin 500 Mg Tablet PO 500 mg Q24H BERT Administration Dexamethasone 6 mg 05/25/20 09:00 05/26/20 09:50 Dexamethasone 6 Mg Tablet PO 6 mg DAILY BERT Administration Enoxaparin Sodium 40 mg 05/25/20 01:00 05/26/20 00:30 Enoxaparin Sodium 40 Mg/0.4 Ml Syringe SUBCUT 40 mg Q24H BERT Administration Senna 17.2 mg 05/25/20 00:28 Sennosides 8.6 Mg Tablet PO BEDTIME PRN Constipation Sodium Chloride 3 ml 05/25/20 08:00 05/26/20 09:50 0.9 % Sodium Chloride Flush 3 Ml Syringe IVFLUSH 3 ml QSHIFT BERT Administration Labs CBC & Chem 7: 05/25/20 09:20 05/25/20 09:20 Microbiology Microbiology Results: Microbiology 05/25/20 00:44 Blood - Venous Blood Culture - Preliminary No growth after 24 hours. 05/25/20 00:44 Blood - Venous Blood Culture - Preliminary No growth after 24 hours. Assessment and Plan (1) Pneumonia due to COVID-19 virus: Status: Acute Assessment and Plan: 29-year-old female with a past medical history of asthma presented to the hospital with a chief complaint of shortness of breath/chest pain. COVID-19 pneumonia: Continue ceftriaxone, azithromycin Continue dexamethasone. Continue Supplemental oxygen p.r.n.. Id consulted recommended no need for remdesivir as not hypoxic For seen by pulmonology chestCT finding likely secondary to COVID pneumonia Blood culture preliminary negative Urine toxicology negative Chest pain: Atypical in nature. Pleuritic. From pneumonia CT showed no evidence of PE. Noted pulmonary opacities concern for septic emboli. Troponins negative EKG nonischemic DVT prophylaxis: Lovenox Code status: Full code
[2020-05-26 15:19] VITALS: BP 111/61; PULSE 82; RESP 20; TEMP 36.8; O2SAT 94
--- NOTE | 2020-05-26 15:34 | MHC.CM.PN ---
DP Female 29 Home no services family will provide transportation. CM will follow to assess for a change in DC needs.
--- NOTE | 2020-05-26 16:23 | CONS_ITS ---
DATE OF SERVICE: 05/26/2020 HISTORY OF PRESENT ILLNESS: This 29-year-old female is admitted since yesterday with nonspecific chest discomfort and increased shortness of breath. The patient had minimal respiratory symptoms and tested for COVID-19 on 05/20, and was later told that she had COVID positive test. Initially, she tried to treat at home, but then she had increased shortness of breath with chest discomfort and presented to the emergency room. She denies fever or chills. CT scan of the chest was performed which is grossly abnormal, will be described below. The patient is admitted to intermediate care unit for further treatment. Since her admission, she has been started on IV dexamethasone, ceftriaxone, and azithromycin. Initially started on oxygen, but later on has not required O2. REVIEW OF SYSTEMS: Essentially negative except for mild cough. Initially, she did have mild low-grade fever, nonspecific chest discomfort, and no other significant symptoms. PAST MEDICAL HISTORY: The patient has history of very mild bronchial asthma and uses albuterol inhaler on a p.r.n. basis. SOCIAL HISTORY: She is nonsmoker and she just has alcoholic drink once in a while. PHYSICAL EXAMINATION: GENERAL: A 29-year-old female, who looks very comfortable. She is conversing very well without any obvious shortness of breath. She claims to be feeling better. EAR, NOSE, THROAT: Examination is normal. NECK: No JVD. Carotids normal. Trachea midline. No lymphadenopathy. CHEST: Symmetrical. Percussion note is resonant. She has good breath sounds on both sides. There are few fine inspiratory crepitations over the basilar areas. CARDIAC: Sounds are normal. No murmur or gallop. ABDOMEN: Moderately obese, soft and nontender. EXTREMITIES: No edema or varicosities. Peripheral pulses normal. DIAGNOSTIC DATA: Chest x-ray on 05/24 shows bilateral patchy infiltrates. No cavitation. CTA of the chest negative for pulmonary embolism, but she has striking finding of diffuse patchy rounded opacities in both sides of the lungs, more marked over the lower lobes. No pleural effusion. No cavitation in the opacities noted. CBC: On admission, white cell count was 4.9 and on 05/25 was 2.9, platelet count 143, slightly decreased. CLINICAL IMPRESSION: 1. Acute COVID-19 infection. 2. Bilateral rounded opacities consistent with COVID pneumonitis. 3. Luckily, she is not very symptomatic at this time. RECOMMENDATIONS: Complete the course of dexamethasone. The patient should be watched for a few more days very closely. Oxygen supplementation only as needed. The patient would need a repeat CT scan in about 2 weeks intervals to make sure that the opacities are resolved. Thank you very much for asking me to see this patient. MD MARIA E Kearns/HUMAIRA / [phone]
[2020-05-26 19:08] VITALS: BP 114/57; PULSE 73; RESP 20; TEMP 37.2; O2SAT 94
[2020-05-26] MEDS: Azithromycin 500 MG TABLET PO (22:43)
[2020-05-27] VITALS: BP 119/70; PULSE 74; RESP 18; TEMP 36.9; O2SAT 95
[2020-05-27] MEDS: Enoxaparin Sodium 40 MG/0.4 ML SYRINGE SUBCUT (00:24)
[2020-05-27 04:00] VITALS: BP 119/76; PULSE 70; RESP 18; TEMP 36.8; O2SAT 94
[2020-05-27 07:34] VITALS: BP 121/72; PULSE 65; RESP 18; TEMP 36.8; O2SAT 94
[2020-05-27] MEDS: Acetaminophen 325 MG TABLET 650 MG PO (09:13)
[2020-05-27] MEDS: dexAMETHasone 6 MG TABLET PO (09:13)
[2020-05-27] MEDS: 0.9 % Sodium Chloride Flush 3 ML SYRINGE IVFLUSH (09:13)
--- NOTE | 2020-05-27 09:59 | PM.PNPUL ---
Subjective Subjective Date of Service: 05/27/20 Principal diagnosis: covid-19 pneumonitis Interval history: PATIENT SEEN THIS MORNING FOR PULMONARY FOLLOW-UP. SHE IS FEELING OKAY EXCEPT FOR SCRATCHY FEELING IN THE THROAT AND MILD COUGH. SHE HAS NO FEVER CHILLS, CHEST PAIN OR SHORTNESS OF BREATH. Objective Data Labs CBC & Chem 7: 05/25/20 09:20 05/25/20 09:20 Microbiology Microbiology Results: Microbiology 05/25/20 00:44 Blood - Venous Blood Culture - Preliminary No growth after 48 hours. 05/25/20 00:44 Blood - Venous Blood Culture - Preliminary No growth after 48 hours. Review of Systems Review of Systems Yes all other systems are reviewed and are negative Constitutional: Reports fatigue (MILD) Comments: MILD SCRATCHY FEELING IN THE THROAT. Cardiovascular: Reports no additional cardiovascular complaints Respiratory: Reports no additional respiratory complaints Gastrointestinal: Reports no additional gastrointestinal complaints Musculoskeletal: Reports muscle weakness (MILD) Reports system reviewed and no additional complaints, except as documented and Reports Abnormal speech present Endocrine: Reports fatigue (MILD) Physical Exam Vital Signs: Vital Signs: Last Vital Signs Temp 98.2 F 05/27/20 07:34 Pulse 65 05/27/20 07:34 Resp 18 05/27/20 07:34 BP 121/72 05/27/20 07:34 Pulse Ox 94 05/27/20 07:34 Body Mass Index 31.4 Const: General: healthy appearing, comfortable, no acute distress, alert and awake Orientation/consciousness: patient oriented x3 HENMT: Head: Yes normal to inspection General nose exam: No nasal polyps present and No nasal discharge present Face and sinus: Yes sinuses nontender Mouth: oropharynx normal Throat: Yes posterior oropharynx normal Eyes: General: appearance normal, both eyes and all related structures Neck: Neck: Yes normal visual inspection, Yes no lymphadenopathy, Yes trachea midline and Yes no JVD Thyroid: Thyroid normal Chest: Chest palpation & inspection: normal inspection of the chest and normal palpation of entire chest wall Resp: Other: HAS GOOD AND EQUAL BREATH SOUNDS ON BOTH SIDES. NO WHEEZES RHONCHI OR CREPITATIONS ARE HEARD. Cardio: Palpation: normal PMI Rate: regular rate Rhythm: regular rhythm Heart sounds: Gallop heart sound present and Murmur heart sound present Peripheral pulses: Peripheral pulses 2+ throughout GI: Palpation (GI): Soft to palpation, Tenderness to palpation present (GI), No hepatosplenomegaly present and Palpable mass present Auscultation: normal bowel sounds Back/Spine/Pelvis: Thoracic/Lumbar Spine: thoracic and lumbar spine normal to inspection Skin: General skin exam: no rashes or lesions noted Neuro: General: patient oriented x3 and no focal motor deficits Cranial nerves: Yes CN's II-XII intact bilaterally Speech: Abnormal speech present Extrem: General: Yes normal to inspection, Yes no clubbing, cyanosis or edema, Yes no calf tenderness and Yes venous stasis dermatitis Psych: Speech and movement: Normal speech and movement present Assessment and Plan Assessment and plan (1) Pneumonia due to COVID-19 virus: Problem details: CLINICALLY THIS PATIENT IS QUITE STABLE, AND HAS NO ACTIVE RESPIRATORY SYMPTOMS OR FINDINGS. OXYGENATION IS WELL MAINTAINED. RADIOLOGIC PICTURE IS THAT OF BILATERAL ROUNDED OPACITIES CONSISTENT WITH COVID PNEUMONITIS TREATMENT PLAN: MAY SWITCH DEXAMETHASONE TO ORAL 6 MG A DAY AND SHE SHOULD COMPLETE THE COURSE OF 10 DAYS. SYMPTOMATIC TREATMENT FOR SCRATCHY THROAT AND IF SHE HAS ANY MILD COUGH. PATIENT WOULD NEED FOLLOW-UP OUTPATIENT AND A REPEAT CT SCAN IN ABOUT 2 WEEKS. Status: Acute Time Spent With Patient Time: Total time spent is greater than 50% in coordination of care (as documented) at patient's floor/unit and/or counseling patient: Time with patient: 15 - 24 minutes
--- NOTE | 2020-05-27 11:27 | PM.DS ---
DS: Providers Provider Date of Service: 05/27/20 Date of admission: 05/25/20 00:28 Primary care physician: Melonie Garcia, INSTRUCTIONAL TECHNOLOGY FACILITATOR Consults: 05/25/20 00:28 Consult to Infectious Diseases Routine Consulting Provider: Jana Landa Reason for consultation: COVID PNA; ?septic emboli Consult to Pulmonology Routine Consulting Provider: Justin Mercer Reason for consultation: COVID; Abnormal CT; ?Septic emboli; Remote hx Vaping. DS: Diagnosis Discharge Diagnosis (1) Pneumonia due to COVID-19 virus: Status: Acute Problem details: CLINICALLY THIS PATIENT IS QUITE STABLE, AND HAS NO ACTIVE RESPIRATORY SYMPTOMS OR FINDINGS. OXYGENATION IS WELL MAINTAINED. RADIOLOGIC PICTURE IS THAT OF BILATERAL ROUNDED OPACITIES CONSISTENT WITH COVID PNEUMONITIS TREATMENT PLAN: MAY SWITCH DEXAMETHASONE TO ORAL 6 MG A DAY AND SHE SHOULD COMPLETE THE COURSE OF 10 DAYS. SYMPTOMATIC TREATMENT FOR SCRATCHY THROAT AND IF SHE HAS ANY MILD COUGH. PATIENT WOULD NEED FOLLOW-UP OUTPATIENT AND A REPEAT CT SCAN IN ABOUT 2 WEEKS. DS: Medications Discharge Medications Home Medications: Previous Rx's Medication Instructions Recorded dexamethasone 6 mg PO DAILY #6 tab 05/27/20 dextromethorphan-guaifenesin 5 ml PO Q4-6H PRN #237 ml 05/27/20 [Robitussin Cough-Chest Jose Luis DM] DS: Summary Hospital Course Hospital Course: HPI 29-year-old female with a past medical history of asthma presented to the hospital with a chief complaint of chest pain. Patient mentioned that she has been having shortness of breath, was diagnosed with COVID-19 pneumonia on 05/20/2020; lately noted to have increased shortness of breath and dyspnea on exertion. Mentions that she has tired. Reports that her chest pain is sharp in nature, worsens with deep inspiration. Denies any numbness tingling. Reports cough. Denies any diarrhea. Review of all other systems is negative except mentioned above ER course: Per ER team patient was noted to be tachycardic and have low-grade temperatures. CT scan showed opacities concern for septic emboli; no evidence of pulmonary embolism. Patient was given ceftriaxone azithromycin and dexamethasone. Admitted to the hospital for further management. ER team and also mentioned that patient denied any IV drug abuse except for remote use of weeping. hospital course 29-year-old female admitted with COVID pneumonia and chest pain, CTA chest on admission shows no pulmonary embolism, chest pain was likely secondary to COVID pneumonia, CT chest shows multiple opacities with question of septic emboli, was started on a IV antibiotic and supportive management, patient was seen by pulmonology reconciled chest CT findings likely secondary to COVID pneumonia, cultures were negative, patient was not hypoxic, patient was saturating well on room air, patient was stable discharged home on p.o. dexamethasone for total 10 days Time Spent with Patient Time attestation: Total time spent providing and/or coordinating discharge services: Discharge coordination time: Greater than 30 minutes Physical Exam Vital Signs: Vital Signs: Last Vital Signs Temp 98.2 F 05/27/20 07:34 Pulse 65 05/27/20 07:34 Resp 18 05/27/20 07:34 BP 121/72 05/27/20 07:34 Pulse Ox 94 05/27/20 07:34 Body Mass Index 31.4 DS: Data Data Completed and Pending Labs on day of discharge: Preliminary micro results at discharge 05/25/20 00:44 Blood Culture - Preliminary Blood - Venous No growth after 48 hours. 05/25/20 00:44 Blood Culture - Preliminary Blood - Venous No growth after 48 hours. Discharge Plan Discharge Anticipated Discharge Date/Time: 05/27/20 11:24 Patient Disposition: Home, Self-Care Referrals: Melonie Garcia NP [Primary Care Provider] - Discharge Medications: New dexamethasone 6 mg Tablet 6 mg PO DAILY Qty: 6 RF: 0 Robitussin Cough-Chest Jose Luis DM 5-50 mg/5 mL liquid 5 ml PO Q4-6H PRN (Reason: cough) Qty: 237 RF: 0 Discharge Orders: Discharge Order (Routine); Ordered 05/27/20 Ordered By: Oleg Kaufman Diet: advance to usual diet Activity on Discharge: As tolerated Stand Alone Forms: Patient Portal Discharge page Care Plan Goals: treat covid Health Concerns: covid pneumonia Plan of Treatment: see above Discharge Date/Time: 05/27/20 13:00
--- NOTE | 2020-05-27 11:46 | MHC.CM.PN ---
Female 29 dx COVID+. Discharge to home today. No services ordered or needed. The Patient has arranged for transportation.
[2020-05-27 11:59] VITALS: BP 111/59; PULSE 78; RESP 18; TEMP 36.4; O2SAT 100
== END 2020-05-27 13:00 | disposition home or self-care (01) | DRG 137 ==
LOC: HO.ED 05-25 02:11 → HO.EDOVER 05-25 02:49 → HO.IMC 05-25 06:16
PROVIDERS: Nurse Practitioner Family; Admitting Provider Hospitalist; Emergency Provider Emergency Medicine; PCP Nurse Practitioner Adult Health; Visit Provider Internal Medicine
DX: U07.1 COVID-19 (principal); J12.82 Pneumonia due to coronavirus disease 2019; F17.210 Nicotine dependence, cigarettes, uncomplicated; Z71.6 Tobacco abuse counseling; Z79.899 Other long term (current) drug therapy
CPT/HCPCS: 36415; 71045; 71275; 80048; 80076; 80307; 81003; 82728; 83605; 83615; 83690; 83735; 84145; 85025; 85379; 85610; 85730; 86140; 87040; 87635; 93005; 93306; 96365; 96375; 99285; 99291; J0696; J1100; J1650; J1885; J8540; Q9967

== ENCOUNTER 2020-06-10 12:32 | Emergency (ER) | payer MEDICAID, SELFPAY ==
--- NOTE | ~2020-06-10 | CT_ITS ---
EXAMINATION: CT ANGIOGRAM OF THE CHEST WITH AND WITHOUT CONTRAST (CT PULMONARY ANGIOGRAM FOR PE) CLINICAL INFORMATION: Reason for Exam Cp sob COMPARISON: None TECHNIQUE: Prior to contrast administration, noncontrast localization images were obtained. Subsequently, multidetector volumetric imaging was performed from the thoracic inlet to below the diaphragms following the administration of 80 mL Omnipaque 350 intravenous contrast. No contrast reaction reported Sagittal, coronal, and MIP oblique sagittal reformatted images were obtained on the CT workstation, uploaded to PACS, and reviewed. This CT examination was performed using dose optimization techniques as appropriate, variously including the following: *Automated exposure control *Adjustment of mA and/or kV according to patient size (this includes techniques or standardized protocols for targeted exams where dose is matched to indication/reason for exam; i.e. extremities or head) *Use of iterative reconstruction technique Total exam dose-length product 306 mGy-cm FINDINGS: QUALITY OF STUDY/CONTRAST BOLUS: Satisfactory. PULMONARY ARTERIES: No central or segmental pulmonary emboli. THORACIC AORTA: No aneurysm or dissection. LUNG: There are bilateral scattered fluffy ill-defined densities throughout the lungs suspicious of developing infiltrates or nodules. No large consolidation or mass seen. PLEURA: No pleural effusion or pneumothorax. MEDIASTINUM: Normal heart size. No pericardial effusion. No hilar or mediastinal lymphadenopathy. No evidence of septal bowing or right heart strain. CHEST WALL/AXILLA: No axillary or internal mammary lymphadenopathy. OSSEOUS STRUCTURES: No acute or suspicious osseous abnormality. UPPER ABDOMEN: Visualized liver, spleen, pancreas appears unremarkable. No reflux of contrast into the hepatic veins to suggest elevated right heart pressures. CT/CT angio chest PE protocol IMPRESSION: No evidence of PE. No evidence of aortic dissection. Ill-defined fluffy densities throughout both lungs suspicious for infiltrates or nodules. VTE: negative
--- NOTE | ~2020-06-10 | US_ITS ---
EXAMINATION: US VENOUS ULTRASOUND WITH DOPPLER LOWER EXTREMITY, BILATERAL CLINICAL INFORMATION: Bilateral calf pain COMPARISON: None TECHNIQUE: Ultrasound of the deep veins is performed from the hip to the calf with compression sonography and color and pulse Doppler assessment. Spectral analysis with color-flow imaging is performed. FINDINGS: RIGHT: There is normal venous compression and respiratory variation and augmented flow. The visualized common femoral vein, superficial femoral vein, profunda femoral vein, popliteal vein, and the trifurcation region shows no evidence of deep venous thrombosis. There is no significant popliteal fossa cyst. LEFT: There is normal venous compression and respiratory variation and augmented flow. The visualized common femoral vein, superficial femoral vein, profunda femoral vein, popliteal vein, and the trifurcation region shows no evidence of deep venous thrombosis. There is no significant popliteal fossa cyst. If the patient's symptoms persist, followup ultrasound in 5 days 7 days might be of value to exclude proximal propagation from a non-visualized calf vein. US/US venous duplex LE BI IMPRESSION: No DVT demonstrated in the bilateral lower extremity.
--- NOTE | ~2020-06-10 | XR_ITS ---
EXAMINATION: XR CHEST CLINICAL INFORMATION: Chest pain COMPARISON: Multiple prior studies. Most recent is chest x-ray 05/24/[address] chest 05/24/2020 TECHNIQUE: Frontal portable view of the chest was obtained. 3:47 PM FINDINGS: The multifocal airspace disease similar prior exams have improved. There is still faint hazy opacity at both mid and lower lungs. There is no pulmonary vascular congestion. There is no pleural effusion. The cardiac and mediastinal contours are unchanged. XR/XR chest 1V IMPRESSION: Improving bilateral airspace opacities compared with chest x-ray 05/24/2020.
[2020-06-10 12:36] VITALS: BP 131/81; PULSE 86; RESP 18; TEMP 36.8; O2SAT 98; BMI 31.4
--- NOTE | 2020-06-10 15:50 | ED.CHESTPAIN ---
HPI - Chest Pain General Chief Complaint: Chest Pain Stated Complaint: CHEST PAIN Time Seen by Provider: 06/10/20 14:46 Source: patient Mode of arrival: ambulatory Limitations: no limitations History of Present Illness HPI narrative: Pleasant 29-year-old female with history of asthma diagnosis COVID-19 on May 20 subsequently had admission here on May 24 and discharged on May 27 for COVID pneumonia she subsequently underwent treatment including CTA chest which is negative and she was subsequently discharged states over the past 3 days has had right leg pain in the calf area also having some chest tightness stays given her recent COVID diagnosis she has been anxious about this and concern. States the pain in the chest is pressure-like hurts with certain movements. There is no recent cough or wheezing. She denies any shortness of breath. No lower extremity swelling. No fever. MD complaint: chest pain Pertinent past history: asthma Onset (ago): day(s) (3 days ) Pain location: right chest Pain radiation: none Severity: mild Quality: aching Risk Factors Coronary artery disease risk factors: none Thoracic aortic dissection risk factors: none Related Data Previous Rx's Medication Instructions Recorded dexamethasone 6 mg PO DAILY #6 tab 05/27/20 dextromethorphan-guaifenesin 5 ml PO Q4-6H PRN #237 ml 05/27/20 [Robitussin Cough-Chest Jose Luis DM] Allergies Allergy/AdvReac Type Severity Reaction Status Date / Time No Known Allergies Allergy Verified 05/24/20 19:31 Review of Systems Review of Systems: Constitutional: No Weight loss, No Fever, No Chills, No Night Sweats, No Fatigue, No Malaise ENT/Mouth: No Hearing loss, No Ear Pain, No Nasal Congestion, No Sinus Pain, No Hoarseness, No sore throat, No Rhinorrhea, No Swallowing Difficulty Eyes: No Eye Pain, No Swelling, No Redness, No Foreign Body, No Discharge, No Vision Changes Cardiovascular: No Chest Pain, No SOB, No Dyspnea on Exertion, No Orthopnea, No Edema, No Palpitations Respiratory: No Cough, No Sputum, No Wheezing, No Smoke Exposure, No Dyspnea Gastrointestinal: No Nausea, No Vomiting, No Diarrhea, No Constipation, No abdominal Pain, No Hematochezia, No Melena Genitourinary: no irregular bleeding, No Dysuria, No Urinary Frequency, No Hematuria, No Urinary Incontinence, No Urgency, No Flank Pain, No Urinary Flow Changes, No Hesitancy Musculoskeletal: No joint pain, No Myalgias, No Joint Swelling, right pain as on HPI Skin: No Skin Lesions, No rash Neuro: No Weakness, No Numbness, No Paresthesias, No Loss of Consciousness, No Dizziness, No Headache Psych: + Anxiety about her health given her recent COVID diagnosis, No Depression, No SI/HI/AH/VH, No Social Issues Heme/Lymph: No Bruising, No Bleeding,No Lymphadenopathy Endocrine: No Polyuria, No Polydipsia, No Temperature Intolerance Yes all other systems are reviewed and are negative [facility] Past Medical History Medical History Asthma COVID-19 Surgical History H/O tubal ligation Hx of section Social History Social History Household Members: Family Housing: House Alcohol intake: never Smoking Status: Never smoker Tobacco Type: E-Cigarette Use of substances other than those prescribed or required for medical reasons: No Advance Directives: No Advance Directives Information Provided: No service: No Current occupational status: employed Physical Exam Vital Signs: Vital Signs: Last Vital Signs Temp 98.5 F 06/10/20 18:43 Pulse 77 06/10/20 18:43 Resp 16 06/10/20 18:43 BP 97/59 L 06/10/20 18:43 Pulse Ox 98 06/10/20 18:43 Body Mass Index 31.4 Reviewed Const: General: cooperative and healthy appearing; No acute distress or intoxicated appearing Nutritional Appearance: average body habitus Orientation/consciousness: patient oriented x3 HENMT: Head: Yes normal to inspection Ears: hearing grossly normal bilaterally Eyes: General: appearance normal, both eyes and all related structures Visual Roach: normal visual roach by confrontation Neck: Neck: Yes normal visual inspection, No positive Brudzinski's sign, No positive Kernig's sign and No tender Thyroid: Thyroid normal Chest: Chest palpation & inspection: normal inspection of the chest Resp: Effort & Inspection: normal respiratory effort Auscultation: clear to auscultation bilaterally Cardio: Jugular venous distension: no JVD Rhythm: regular rhythm Heart sounds: S1 normal heart sound present and S2 normal heart sound present GI: Inspection: Yes normal to inspection Palpation (GI): Soft to palpation Percussion: Yes normal to percussion Auscultation: normal bowel sounds : General: Yes no CVA tenderness Back/Spine/Pelvis: Back: no CVA tenderness Skin: General skin exam: no rashes or lesions noted Neuro: General: patient oriented x3 Extrem: General: Yes normal to inspection Right lower extremity: normal to inspection, full ROM, normal capillary refill and lower leg (Pain over the calf muscle. No erythema, rash.); no cyanosis, no edema and joint enlargement noted Course Course Course Narrative: Atypical for cardiac see more anxious otherwise hemodynamically stable. Very marginal elevation in her D-dimer from previous given her recent diagnosis of COVID CTA of the chest was done which was negative as well as bilateral lower extremity ultrasound which is negative. Reassurance provided otherwise hemodynamically stable pulse ox 100% on room air. Will discharge home with supportive care, return, follow-up instructions. Stable for discharge. Heart score 0. MDM - Chest Pain Lab Data Result diagrams: 06/10/20 16:11 06/10/20 16:11 Labs: Lab Results 06/10/20 06/10/20 06/10/20 Range/Units 16:11 16:11 16:11 WBC 10.5 (4.8-10.8) X10*3/uL RBC 4.43 (4.20-5.50) X10*6/uL Hgb 13.6 (12.0-16.0) g/dl Hct 40.6 (37-47) % MCV 91.6 (80-98) fL MCH 30.7 (27.0-33.0) pg MCHC 33.5 (31.0-35.0) g/dl RDW 13.2 (11.0-16.0) % Plt Count 179 D (160-400) X10*3/uL MPV 10.8 (9.4-12.3) fL Immature Gran % (Auto) 0.4 (0.0-0.4) % Neut % (Auto) 61.2 (45-73) % Lymph % (Auto) 28.8 (20-40) % [place] % (Auto) 8.4 (2-11) % Eos % (Auto) 1.0 (0-4) % Baso % (Auto) 0.2 (0-2) % Lymph # (Auto) 3.0 (1.2-4.9) X10*3/uL [place] # (Auto) 0.9 (0.1-1.2) X10*3/uL Eos # (Auto) 0.1 (0.0-0.4) X10*3/uL Baso # (Auto) 0.0 (0.0-0.2) X10*3/uL Abs Immat Gran (auto) 0.04 H (0.00-0.03) X10*3/uL Absolute Neuts (auto) 6.4 (2.0-8.3) X10*3/uL Absolute Nucleated RBC 0.000 (0.0-0.012) X10*3/uL Nucleated RBC % (auto) 0.0 (0.0-0.2) /100WBC PT 12.1 (10.8-13.0) SEC INR 1.0 (0.9-1.1) APTT 29.5 (24.1-38.0) SEC D-Dimer 402 NG/ML Sodium 139 (135-145) mmol/L Potassium 3.5 D (3.3-5.1) mmol/L Chloride 103 (96-108) mmol/L Carbon Dioxide 27 (22-29) mmol/L Anion Gap 13 (12-20) BUN 13 (9-16) mg/dL Creatinine 0.74 (0.5-1.4) mg/dL Estim Creat Clear Calc 141.8 Estimated GFR > 60 Random Glucose 77 D (60-115) mg/dL Calcium 9.1 D (8.4-10.2) mg/dL Ferritin (10-122) ng/mL Total Bilirubin 0.8 (0.0-1.0) mg/dL AST 28 D (5-31) U/L ALT 46 H (0-31) U/L Alkaline Phosphatase 94 (39-117) U/L Lactate Dehydrogenase 247 H (122-220) U/L Total Creatine Kinase 103 (26-140) U/L Troponin I High Sens (<3.5-17.0) ng/L C-Reactive Protein 0.45 (< or = 0.50) mg/dL B-Natriuretic Peptide (<100) pg/mL Total Protein 7.1 (6.5-8.0) g/dL Albumin 4.1 (3.5-5.0) g/dL Procalcitonin ng/mL Urine Color Urine Appearance Urine pH (5.0-8.0) Ur Specific [place] (1.005-1.025) Urine Protein (NEG-TRACE) MG/DL Urine Glucose (UA) (NEG) MG/DL Urine Ketones (NEG) MG/DL Urine Blood (NEG) Urine Nitrite (NEG) Ur Leukocyte Esterase (NEG) Urine RBC (0) /HPF Urine WBC (0-4) /HPF Ur Squamous Epith Cells /LPF Urine Bacteria /LPF Urine Test (NEGATIVE) 06/10/20 06/10/20 06/10/20 Range/Units 16:11 16:11 16:11 WBC (4.8-10.8) X10*3/uL RBC (4.20-5.50) X10*6/uL Hgb (12.0-16.0) g/dl Hct (37-47) % MCV (80-98) fL MCH (27.0-33.0) pg MCHC (31.0-35.0) g/dl RDW (11.0-16.0) % Plt Count (160-400) X10*3/uL MPV (9.4-12.3) fL Immature Gran % (Auto) (0.0-0.4) % Neut % (Auto) (45-73) % Lymph % (Auto) (20-40) % [place] % (Auto) (2-11) % Eos % (Auto) (0-4) % Baso % (Auto) (0-2) % Lymph # (Auto) (1.2-4.9) X10*3/uL [place] # (Auto) (0.1-1.2) X10*3/uL Eos # (Auto) (0.0-0.4) X10*3/uL Baso # (Auto) (0.0-0.2) X10*3/uL Abs Immat Gran (auto) (0.00-0.03) X10*3/uL Absolute Neuts (auto) (2.0-8.3) X10*3/uL Absolute Nucleated RBC (0.0-0.012) X10*3/uL Nucleated RBC % (auto) (0.0-0.2) /100WBC PT (10.8-13.0) SEC INR (0.9-1.1) APTT (24.1-38.0) SEC D-Dimer NG/ML Sodium (135-145) mmol/L Potassium (3.3-5.1) mmol/L Chloride (96-108) mmol/L Carbon Dioxide (22-29) mmol/L Anion Gap (12-20) BUN (9-16) mg/dL Creatinine (0.5-1.4) mg/dL Estim Creat Clear Calc Estimated GFR Random Glucose (60-115) mg/dL Calcium (8.4-10.2) mg/dL Ferritin 175 H (10-122) ng/mL Total Bilirubin (0.0-1.0) mg/dL AST (5-31) U/L ALT (0-31) U/L Alkaline Phosphatase (39-117) U/L Lactate Dehydrogenase (122-220) U/L Total Creatine Kinase (26-140) U/L Troponin I High Sens < 3.5 (<3.5-17.0) ng/L C-Reactive Protein (< or = 0.50) mg/dL B-Natriuretic Peptide (<100) pg/mL Total Protein (6.5-8.0) g/dL Albumin (3.5-5.0) g/dL Procalcitonin 0.02 ng/mL Urine Color Urine Appearance Urine pH (5.0-8.0) Ur Specific [place] (1.005-1.025) Urine Protein (NEG-TRACE) MG/DL Urine Glucose (UA) (NEG) MG/DL Urine Ketones (NEG) MG/DL Urine Blood (NEG) Urine Nitrite (NEG) Ur Leukocyte Esterase (NEG) Urine RBC (0) /HPF Urine WBC (0-4) /HPF Ur Squamous Epith Cells /LPF Urine Bacteria /LPF Urine Test (NEGATIVE) 06/10/20 06/10/20 06/10/20 Range/Units 16:11 16:11 16:11 WBC (4.8-10.8) X10*3/uL RBC (4.20-5.50) X10*6/uL Hgb (12.0-16.0) g/dl Hct (37-47) % MCV (80-98) fL MCH (27.0-33.0) pg MCHC (31.0-35.0) g/dl RDW (11.0-16.0) % Plt Count (160-400) X10*3/uL MPV (9.4-12.3) fL Immature Gran % (Auto) (0.0-0.4) % Neut % (Auto) (45-73) % Lymph % (Auto) (20-40) % [place] % (Auto) (2-11) % Eos % (Auto) (0-4) % Baso % (Auto) (0-2) % Lymph # (Auto) (1.2-4.9) X10*3/uL [place] # (Auto) (0.1-1.2) X10*3/uL Eos # (Auto) (0.0-0.4) X10*3/uL Baso # (Auto) (0.0-0.2) X10*3/uL Abs Immat Gran (auto) (0.00-0.03) X10*3/uL Absolute Neuts (auto) (2.0-8.3) X10*3/uL Absolute Nucleated RBC (0.0-0.012) X10*3/uL Nucleated RBC % (auto) (0.0-0.2) /100WBC PT (10.8-13.0) SEC INR (0.9-1.1) APTT (24.1-38.0) SEC D-Dimer NG/ML Sodium (135-145) mmol/L Potassium (3.3-5.1) mmol/L Chloride (96-108) mmol/L Carbon Dioxide (22-29) mmol/L Anion Gap (12-20) BUN (9-16) mg/dL Creatinine (0.5-1.4) mg/dL Estim Creat Clear Calc Estimated GFR Random Glucose (60-115) mg/dL Calcium (8.4-10.2) mg/dL Ferritin (10-122) ng/mL Total Bilirubin (0.0-1.0) mg/dL AST (5-31) U/L ALT (0-31) U/L Alkaline Phosphatase (39-117) U/L Lactate Dehydrogenase (122-220) U/L Total Creatine Kinase (26-140) U/L Troponin I High Sens (<3.5-17.0) ng/L C-Reactive Protein (< or = 0.50) mg/dL B-Natriuretic Peptide < 10 (<100) pg/mL Total Protein (6.5-8.0) g/dL Albumin (3.5-5.0) g/dL Procalcitonin ng/mL Urine Color YELLOW Urine Appearance CLEAR Urine pH 5.5 (5.0-8.0) Ur Specific [place] 1.020 (1.005-1.025) Urine Protein NEG (NEG-TRACE) MG/DL Urine Glucose (UA) NEG (NEG) MG/DL Urine Ketones NEG (NEG) MG/DL Urine Blood NEG (NEG) Urine Nitrite NEG (NEG) Ur Leukocyte Esterase NEG (NEG) Urine RBC 0 (0) /HPF Urine WBC 0 (0-4) /HPF Ur Squamous Epith Cells 1+ /LPF Urine Bacteria NONE /LPF Urine Test NEGATIVE (NEGATIVE) Imaging Data Chest CTA PE: Radiologist's impression: [address] Scan ReportSigned Patient: Mendez MarieMR#: [id number]: 1990Acct:[id number]/Sex: 29 FADM Date: 06/10/20Loc: EDAttjenna Dr: Ordering Physician: Aly Corona NP Date of Service: 06/10/20 Procedure(s): CT angio chest PE protocol Accession Number(s): [id number] cc: Aly Corona PULPWOOD CUTTER~ EXAMINATION: CT ANGIOGRAM OF THE CHEST WITH AND WITHOUT CONTRAST (CT PULMONARY ANGIOGRAM FOR PE) CLINICAL INFORMATION: Reason for Exam Cp sob COMPARISON: None TECHNIQUE: Prior to contrast administration, noncontrast localization images were obtained. Subsequently, multidetector volumetric imaging was performed from the thoracic inlet to below the diaphragms following the administration of 80 mL Omnipaque 350 intravenous contrast. No contrast reaction reported Sagittal, coronal, and MIP oblique sagittal reformatted images were obtained on the CT workstation, uploaded to PACS, and reviewed. This CT examination was performed using dose optimization techniques as appropriate, variously including the following: *Automated exposure control *Adjustment of mA and/or kV according to patient size (this includes techniques or standardized protocols for targeted exams where dose is matched to indication/reason for exam; i.e. extremities or head) *Use of iterative reconstruction technique Total exam dose-length product 306 mGy-cm FINDINGS: QUALITY OF STUDY/CONTRAST BOLUS: Satisfactory. PULMONARY ARTERIES: No central or segmental pulmonary emboli. THORACIC AORTA: No aneurysm or dissection. LUNG: There are bilateral scattered fluffy ill-defined densities throughout the lungs suspicious of developing infiltrates or nodules. No large consolidation or mass seen. PLEURA: No pleural effusion or pneumothorax. MEDIASTINUM: Normal heart size. No pericardial effusion. No hilar or mediastinal lymphadenopathy. No evidence of septal bowing or right heart strain. CHEST WALL/AXILLA: No axillary or internal mammary lymphadenopathy. OSSEOUS STRUCTURES: No acute or suspicious osseous abnormality. UPPER ABDOMEN: Visualized liver, spleen, pancreas appears unremarkable. No reflux of contrast into the hepatic veins to suggest elevated right heart pressures. CT/CT angio chest PE protocol IMPRESSION: No evidence of PE. No evidence of aortic dissection. Ill-defined fluffy densities throughout both lungs suspicious for infiltrates or nodules. VTE: negative Dictated By:AIDEN LOUISE MDSigned By:<Electronically signed by AIDEN LOUISE MD in OV>06/10/20 181 DD/ 1704TD/TT: Landscape Technician: LITO Bilateral lower extremity venous duplex: Radiologist's impression: Mendez Marie 29 F [address] [id number] ReportSigned Patient: Mendez MarieMR#: [id number]: 1990Acct:[id number]/Sex: 29 / FADM Date: 06/10/20Loc: Li Jackson: Ordering Physician: Aly Corona NP Date of Service: 06/10/20 Procedure(s): US venous duplex LE Accession Number(s): [id number] cc: Aly Corona NP~ EXAMINATION: US VENOUS ULTRASOUND WITH DOPPLER LOWER EXTREMITY, BILATERAL CLINICAL INFORMATION: Bilateral calf pain COMPARISON: None TECHNIQUE: Ultrasound of the deep veins is performed from the hip to the calf with compression sonography and color and pulse Doppler assessment. Spectral analysis with color-flow imaging is performed. FINDINGS: RIGHT: There is normal venous compression and respiratory variation and augmented flow. The visualized common femoral vein, superficial femoral vein, profunda femoral vein, popliteal vein, and the trifurcation region shows no evidence of deep venous thrombosis. There is no significant popliteal fossa cyst. LEFT: There is normal venous compression and respiratory variation and augmented flow. The visualized common femoral vein, superficial femoral vein, profunda femoral vein, popliteal vein, and the trifurcation region shows no evidence of deep venous thrombosis. There is no significant popliteal fossa cyst. If the patient's symptoms persist, followup ultrasound in 5 days 7 days might be of value to exclude proximal propagation from a non-visualized calf vein. US/US venous duplex LE BI IMPRESSION: No DVT demonstrated in the bilateral lower extremity. Dictated By:AIDEN LOUISE MDSigned By:<Electronically signed by AIDEN LOUISE MD in OV>06/10/20 1823 DD/ 1704TD/TT: Landscape Technician: LITO Chest x-ray: Radiologist's impression: [address] [id number] ReportSigned Patient: eMndez MarieMR#: [id number]: 1990Acct:[id number]/Sex: 29 / FADM Date: 06/10/20Loc: JOSE R.EDAttending Dr: Ordering Physician: Aly Corona NP Date of Service: 06/10/20 Procedure(s): XR chest 1V Accession Number(s): [id number] cc: Aly Corona PULPWOOD CUTTER~ EXAMINATION: XR CHEST CLINICAL INFORMATION: Chest pain COMPARISON: Multiple prior studies. Most recent is chest x-ray 05/24/[address] chest 05/24/2020 TECHNIQUE: Frontal portable view of the chest was obtained. 3:47 PM FINDINGS: The multifocal airspace disease similar prior exams have improved. There is still faint hazy opacity at both mid and lower lungs. There is no pulmonary vascular congestion. There is no pleural effusion. The cardiac and mediastinal contours are unchanged. XR/XR chest 1V IMPRESSION: Improving bilateral airspace opacities compared with chest x-ray 05/24/2020. Dictated By:RAHAT ALLRED MDSigned By:<Electronically signed by RAHAT ALLRED MD in OV>06/10/20 1603 DD/ 1551TD/TT: Landscape Technician: SANKET ECG Data ECG #1: Interpretation: Normal sinus rhythm Rate 79 Nonspecific T-wave Compare to 05/24/2020 Discharge Plan Discharge Clinical Impression: Atypical chest pain, Leg strain Patient Disposition: Home, Self-Care Instructions: Chest Pain (ED), Muscle Strain (ED) Additional Instructions: CT scan of your chest did not show any evidence of blood clot Ultrasounds of the both lower extremities did not show any evidence of blood clot Your blood work was overall reassuring including blood work for heart The pain that you are having is more consistent with muscle related and less likely lung/heart related I would like for you to do gentle stretching Can take ibuprofen as needed for pain discomfort Drink plenty of fluids Return if any concerns or worsening symptoms Follow-up as instructed Thank you Prescriptions: No Action dexamethasone 6 mg Tablet 6 mg PO DAILY Qty: 6 RF: 0 Robitussin Cough-Chest Jose Luis DM 5-50 mg/5 mL liquid 5 ml PO Q4-6H PRN (Reason: cough) Qty: 237 RF: 0 Referrals: Melonie Garcia NP [Primary Care Provider] - 3 days Stand Alone Forms: Work/School Release
--- NOTE | 2020-06-10 15:51 | ECG_ITS ---
Test Reason : CHEST DISCOMFORT Blood Pressure : / mmHG Vent. Rate : 079 BPM Atrial Rate : 079 BPM P-R Int : 134 ms QRS Dur : 090 ms QT Int : 372 ms P-R-T Axes : 046 022 029 degrees QTc Int : 426 ms Normal sinus rhythm Normal ECG When compared with ECG of 24-MAY-2020 19:50, Nonspecific T wave abnormality now evident in Anterior leads Referred By: Aly Corona Electronically Signed By:DAVID ALTMAN MD
[2020-06-10 16:18] VITALS: BP 123/74; PULSE 80; RESP 16; O2SAT 99
[2020-06-10 16:18] LABS: MANUAL DIFF FLAG NO
[2020-06-10 16:20] VITALS: PULSE 78
[2020-06-10 16:20] LABS: Basophils Percent Auto 0.2 % (0-2); Eosinophils Absolute Auto 0.1 X10*3/uL (0.0-0.4); Hematocrit 40.6 % (37-47); Hemoglobin 13.6 g/dl (12.0-16.0); Imm Gran Abs Auto 0.04 X10*3/uL (0.00-0.03); Imm Gran Pct Auto 0.4 % (0.0-0.4); Lymphocytes Percent Auto 28.8 % (20-40); Mean Corpuscular HGB Conc 33.5 g/dl (31.0-35.0); Mean Corpuscular Hemoglobin 30.7 pg (27.0-33.0); Mean Corpuscular Volume 91.6 fL (80-98); Mean Platelet Volume 10.8 fL (9.4-12.3); Monocytes Absolute Auto 0.9 X10*3/uL (0.1-1.2); Monocytes Percent Auto 8.4 % (2-11); Neutrophils Absolute Auto 6.4 X10*3/uL (2.0-8.3); Neutrophils Percent Auto 61.2 % (45-73); Platelet Count 179 X10*3/uL (160-400); Red Blood Count 4.43 X10*6/uL (4.20-5.50); Red Cell Distribution Width 13.2 % (11.0-16.0); White Blood Count 10.5 X10*3/uL (4.8-10.8)
--- NOTE | 2020-06-10 16:21 | PC.NURSE ---
PT UPRIGHT IN BED, RR EVEN UNLABORED, SKIN WPD, AOX3. PT REPORTS AWOKE THIS AM W/ R CALF TENDERNESS WORSE W/ AMBULATION AND PALPATION AND L UPPER CHEST PAIN ALSO WORSE W/ AMBULATION AND PALPATION. PT STS RECENTLY D/C'D FROM INPATIENT D/T COVID PNA, STS HAS NOT BEEN SAME SINCE, HAS HAD SIMILAR EPISODES OF CALF CRAMPS AND CP BUT NEVER NOT RESOLVING AT REST. IV ESTABLISHED, LABS DRAWN, PT AWAITING RESULTS AND PROVIDER RE-EVAL, PT AWARE/AGREEABLE TO PLAN OF CARE.
[2020-06-10 16:22] LABS: Glucose Urine UA NEG (NEG); Leukocyte Esterase Urine NEG (NEG); Nitrite Urine NEG (NEG); PH 5.5 (5.0-8.0); UPreg QC Valid YES; Urine Blood NEG (NEG); Urine Ketones NEG (NEG); Urine Pregnancy NEGATIVE (NEGATIVE); Urine Protein NEG (NEG-TRACE)
[2020-06-10 16:23] LABS: Appearance Urine CLEAR; Color Urine YELLOW
[2020-06-10 16:29] LABS: Prothrombin Time 12.1 SEC (10.8-13.0)
[2020-06-10 16:32] LABS: D Dimer 402 NG/ML; Partial Thromboplastin Time 29.5 SEC (24.1-38.0); RBC Urine 0 /HPF (0); Squamous Epithelial Cell Urine 1+ /LPF; WBC Urine 0 /HPF (0-4)
[2020-06-10 16:45] LABS: Alanine Aminotransferase 46 U/L (0-31); Albumin Level 4.1 g/dL (3.5-5.0); Alkaline Phosphatase 94 U/L (39-117); Anion Gap 13 (12-20); Aspartate Amino Transferase 28 U/L (5-31); Bilirubin Total 0.8 mg/dL (0.0-1.0); Blood Urea Nitrogen 13 mg/dL (9-16); C Reactive Protein 0.45 mg/dL (< or = 0.50); Calcium 9.1 mg/dL (8.4-10.2); Carbon Dioxide 27 mmol/L (22-29); Chloride 103 mmol/L (96-108); Creatinine Clr Calc Pharmacy 141.8; Estimated Glomerular Filt Rate > 60; Glucose Random 77 mg/dL (60-115); Lactate Dehydrogenase 247 U/L (122-220); Potassium 3.5 mmol/L (3.3-5.1); Sodium 139 mmol/L (135-145); Total Protein 7.1 g/dL (6.5-8.0)
[2020-06-10 16:49] LABS: B Type Natriuretic Peptide < 10 pg/mL (<100); Troponin-I High Sensitivity < 3.5 ng/L (<3.5-17.0)
[2020-06-10 17:02] LABS: Ferritin 175 ng/mL (10-122)
[2020-06-10 17:03] LABS: Procalcitonin 0.02 ng/mL
[2020-06-10] MEDS: iohexoL 350 MG/ML 75 ML INFUS..BTL IV (17:28)
[2020-06-10 18:43] VITALS: BP 97/59; PULSE 77; RESP 16; TEMP 36.9; O2SAT 98
== END 2020-06-10 19:33 | disposition home or self-care (01) ==
PROVIDERS: Nurse Practitioner Primary Care; Emergency Provider Emergency Medicine; PCP Nurse Practitioner Adult Health
DX: R07.89 Other chest pain (principal); S86.911A Strain of unspecified muscle(s) and tendon(s) at lower leg level, right leg, initial encounter; X58.XXXA Exposure to other specified factors, initial encounter; F17.290 Nicotine dependence, other tobacco product, uncomplicated; Y93.9 Activity, unspecified; Y92.9 Unspecified place or not applicable; Y99.9 Unspecified external cause status; Z86.16 Personal history of COVID-19
CPT/HCPCS: 36415; 71045; 71275; 80053; 81001; 81025; 82550; 82728; 83615; 83880; 84145; 84484; 85025; 85379; 85610; 85730; 86140; 93005; 93970; 99284; 99285; Q9967

== ENCOUNTER → 2020-07-12 14:10 | Outpatient (BNVA) | payer MEDICAID, SELFPAY | PROVIDERS: PCP Nurse Practitioner Adult Health; Visit Provider Internal Medicine Pulmonary Disease | DX: R06.00 Dyspnea, unspecified (principal); B94.8 Sequelae of other specified infectious and parasitic diseases; J45.909 Unspecified asthma, uncomplicated | CPT/HCPCS: 99202 ==

== ENCOUNTER 2020-08-06 10:54 | Outpatient (REF) | payer MEDICAID, SELFPAY ==
--- NOTE | 2020-08-06 17:19 | PFT_ITS ---
INDICATION: Asthma. SPIROMETRY: The FEV1 to FVC of 87% with an FEV1 of 3.94 L, which is 102% predicted and an FVC of 4.51 L, which is 100% predicted. No significant response to bronchodilators noted. Maximum voluntary ventilation 115% predicted. LUNG VOLUMES: Total lung capacity 92% predicted with an expiratory reserve volume of 48% predicted. DIFFUSION CAPACITY: DLCO 90% predicted. Flow volume loop appears to be completely normal. COMPARISONS: None. INTERPRETATION: No obstructive nor restrictive ventilatory defects identified. No significant response to bronchodilators noted. Normal maximum voluntary ventilation. Lung volumes with a decrease in the expiratory reserve volume secondary to an elevated BMI. Diffusion capacity is within normal limits. If asthma is in the differential, methacholine challenge may be helpful in assessing for hyper-reactive airways, otherwise clinical correlation warranted. Warren Campbell MD MR/MODL / [id number]
== END 2020-08-06 10:55 | disposition home or self-care (01) ==
LOC: HO.RESP 10:54
PROVIDERS: Visit Provider Internal Medicine Pulmonary Disease
DX: J45.909 Unspecified asthma, uncomplicated (principal)
CPT/HCPCS: 94060; 94727; 94729

== ENCOUNTER 2020-08-13 09:12 | Outpatient (REF) | payer MEDICAID, SELFPAY ==
--- NOTE | ~2020-08-13 | CT_ITS ---
EXAMINATION: CT CHEST WITHOUT CONTRAST CLINICAL INFORMATION: Pneumonia, COVID-19 COMPARISON: CTA chest 06/10/2020, 05/24/2020; chest radiograph 06/10/2020, 05/24/2020 TECHNIQUE: Multidetector volumetric CT imaging of the chest was done. Axial MIP volume rendering provided. Sagittal and coronal reformatted images were obtained. This CT examination was performed using dose optimization techniques as appropriate, variously including the following: *Automated exposure control *Adjustment of mA and/or kV according to patient size (this includes techniques or standardized protocols for targeted exams where dose is matched to indication/reason for exam; i.e. extremities or head) *Use of iterative reconstruction technique DLP: 188 mGy-cm FINDINGS: LUNGS: The central airways are clear and there is no endobronchial lesion or bronchiectasis. The airspace opacities noted previously have almost completely resolved with only some scattered subtle faint groundglass foci remaining. There is no lobar or segmental airspace consolidation. No mass or nodule. No fibrotic changes. 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 No pneumothorax. MEDIASTINUM: No hilar or mediastinal adenopathy. Heart size normal. No pericardial effusion. Thoracic aorta normal in caliber. PLEURA: There is no pleural effusion. No pleural mass or thickening. AXILLA: No lymphadenopathy. UPPER ABDOMEN: Unremarkable. OSSEOUS STRUCTURES: Unremarkable. CT/CT chest wo con IMPRESSION: 1. Airspace opacities noted previously have almost completely resolved with only some subtle scattered faint groundglass foci remaining. No fibrotic changes or bronchiectasis. 2. No adenopathy or effusion.
== END 2020-08-13 09:13 | disposition home or self-care (01) ==
LOC: HO.CT 09:12
PROVIDERS: Visit Provider Family Medicine
DX: U07.1 COVID-19 (principal); J12.82 Pneumonia due to coronavirus disease 2019
CPT/HCPCS: 71250

== ENCOUNTER → 2020-08-20 10:19 | Outpatient (BNVA) | payer MEDICAID, SELFPAY | PROVIDERS: PCP Nurse Practitioner Adult Health; Visit Provider Internal Medicine Pulmonary Disease | DX: B94.8 Sequelae of other specified infectious and parasitic diseases (principal); R06.00 Dyspnea, unspecified; Z79.899 Other long term (current) drug therapy | CPT/HCPCS: 99212 ==

== ENCOUNTER 2021-03-23 17:12 | Emergency (ER) | payer MEDICAID, SELFPAY ==
[2021-03-23 17:34] VITALS: BP 129/87; PULSE 90; RESP 18; O2SAT 96; BMI 33.7
[2021-03-23 18:21] LABS: MANUAL DIFF FLAG NO
[2021-03-23 18:36] LABS: Basophils Percent Auto 0.4 % (0-2); Eosinophils Absolute Auto 0.1 X10*3/uL (0.0-0.4); Eosinophils Percent Auto 1.1 % (0-4); Hematocrit 44.3 % (37.0-47.0); Hemoglobin 14.9 g/dl (12.0-16.0); Imm Gran Abs Auto 0.04 X10*3/uL (0.00-0.03); Imm Gran Pct Auto 0.4 % (0.0-0.4); Lymphocytes Absolute Auto 3.7 X10*3/uL (1.2-4.9); Mean Corpuscular HGB Conc 33.6 g/dl (31.0-35.0); Mean Corpuscular Hemoglobin 30.7 pg (27.0-33.0); Mean Corpuscular Volume 91.3 fL (80.0-98.0); Mean Platelet Volume 10.5 fL (9.4-12.3); Monocytes Absolute Auto 0.7 X10*3/uL (0.1-1.2); Monocytes Percent Auto 6.5 % (2-11); Neutrophils Percent Auto 56.6 % (45-73); Platelet Count 254 X10*3/uL (160-400); Red Blood Count 4.85 X10*6/uL (4.20-5.50); Red Cell Distribution Width 12.4 % (11.0-16.0); White Blood Count 10.6 X10*3/uL (4.8-10.8)
[2021-03-23 18:44] LABS: Alanine Aminotransferase 37 U/L (0-31); Albumin Level 4.3 g/dL (3.5-5.0); Alkaline Phosphatase 98 U/L (39-117); Anion Gap 12 (12-20); Aspartate Amino Transferase 21 U/L (5-31); Bilirubin Total 0.6 mg/dL (0.0-1.0); Blood Urea Nitrogen 13 mg/dL (9-16); Calcium 9.9 mg/dL (8.4-10.2); Carbon Dioxide 27 mmol/L (22-29); Chloride 104 mmol/L (96-108); Creatinine Clr Calc Pharmacy 143.7; Estimated Glomerular Filt Rate > 60; Glucose Random 90 mg/dL (60-115); Potassium 4.3 mmol/L (3.3-5.1); Sodium 139 mmol/L (135-145); Total Protein 7.8 g/dL (6.5-8.0)
[2021-03-23 19:48] LABS: Appearance Urine CLEAR; Color Urine YELLOW; Glucose Urine UA NEG (NEG); Leukocyte Esterase Urine NEG (NEG); Nitrite Urine NEG (NEG); Specific Gravity - Urine 1.025 (1.005-1.025); Urine Blood NEG (NEG); Urine Ketones NEG (NEG); Urine Protein NEG (NEG-TRACE)
== END 2021-03-23 21:38 | disposition left against medical advice (07) ==
PROVIDERS: Emergency Provider Emergency Medicine; PCP Nurse Practitioner Adult Health
DX: R10.31 Right lower quadrant pain (principal)
CPT/HCPCS: 36415; 80053; 81003; 85025; 99283

== ENCOUNTER 2021-06-09 14:12 | Emergency (ER) | payer MEDICAID, SELFPAY ==
--- NOTE | ~2021-06-09 | XR_ITS ---
EXAMINATION: XR CHEST CLINICAL INFORMATION: Chest pain COMPARISON: None TECHNIQUE: Frontal view of the chest was obtained. FINDINGS: The lungs are well-expanded and clear. The heart size and pulmonary vascularity is normal. There is mild levoscoliosis upper and mid dorsal spine. There is no lytic or sclerotic process. XR/XR chest 1V IMPRESSION: Mild levoscoliosis upper dorsal spine. There is no visible acute fracture or dislocation seen.
--- NOTE | 2021-06-09 14:17 | ECG_ITS ---
Test Reason : chest pain Blood Pressure : / mmHG Vent. Rate : 112 BPM Atrial Rate : 112 BPM P-R Int : 122 ms QRS Dur : 084 ms QT Int : 322 ms P-R-T Axes : 058 033 047 degrees QTc Int : 439 ms Sinus tachycardia Otherwise normal ECG When compared with ECG of 10-JUN-2020 13:05, Nonspecific T wave abnormality no longer evident in Anterior leads Referred By: Generic ED Physician Electronically Signed By:LISETTE GALVEZ
[2021-06-09 14:28] LABS: MANUAL DIFF FLAG NO
[2021-06-09 14:29] VITALS: BP 149/101; PULSE 107; RESP 18; TEMP 36.6; O2SAT 97; BMI 35.6
[2021-06-09 14:29] LABS: Basophils Percent Auto 0.2 % (0-2); Eosinophils Absolute Auto 0.2 X10*3/uL (0.0-0.4); Eosinophils Percent Auto 1.7 % (0-4); Hematocrit 42.5 % (37.0-47.0); Hemoglobin 14.7 g/dl (12.0-16.0); Imm Gran Abs Auto 0.02 X10*3/uL (0.00-0.03); Imm Gran Pct Auto 0.2 % (0.0-0.4); Lymphocytes Absolute Auto 2.6 X10*3/uL (1.2-4.9); Lymphocytes Percent Auto 29.9 % (20-40); Mean Corpuscular HGB Conc 34.6 g/dl (31.0-35.0); Mean Corpuscular Hemoglobin 30.8 pg (27.0-33.0); Mean Corpuscular Volume 88.9 fL (80.0-98.0); Mean Platelet Volume 10.3 fL (9.4-12.3); Monocytes Absolute Auto 0.7 X10*3/uL (0.1-1.2); Monocytes Percent Auto 7.6 % (2-11); Neutrophils Absolute Auto 5.3 x10*3/uL (2.0-8.3); Neutrophils Percent Auto 60.4 % (45-73); Platelet Count 212 X10*3/uL (160-400); Red Blood Count 4.78 X10*6/uL (4.20-5.50); Red Cell Distribution Width 12.8 % (11.0-16.0); White Blood Count 8.7 X10*3/uL (4.8-10.8)
[2021-06-09 14:45] LABS: Anion Gap 10 (12-20); Blood Urea Nitrogen 12 mg/dL (9-16); Calcium 9.1 mg/dL (8.4-10.2); Carbon Dioxide 23 mmol/L (22-29); Chloride 109 mmol/L (96-108); Creatinine Clr Calc Pharmacy 130.4; Estimated Glomerular Filt Rate > 60; Glucose Random 136 mg/dL (60-115); Sodium 138 mmol/L (135-145)
[2021-06-09 14:52] LABS: Troponin-I High Sensitivity < 3.5 ng/L (<3.5-17.0)
[2021-06-09 18:19] VITALS: BP 120/85; PULSE 84; RESP 16; TEMP 36.8; O2SAT 97
--- NOTE | 2021-06-09 18:24 | ED.CHESTPAIN ---
HPI - Chest Pain General Chief Complaint: Chest Pain Stated Complaint: Chest pain Time Seen by Provider: 06/09/21 18:24 Source: patient Mode of arrival: ambulatory Limitations: no limitations History of Present Illness HPI narrative: patient with history of fibromyalgia and anxiety complaining of chest pain localized to the left upper chest and upper back since yesterday no shortness of breath no cough no fever patient never had similar pain in the past of the patient feeling more anxious with poor sleep in the night Related Data Previous Rx's Medication Instructions Recorded dextromethorphan 5 mg-guaifenesin 5 ml PO Q4-6H PRN #237 ml 05/27/20 50 mg/5 mL oral liquid (Robitussin Cough-Chest Congestion DM) prednisone 10 mg tablet 30 mg PO DAILY 30 Days #90 tab 07/12/20 lorazepam 0.5 mg tablet (Ativan) 0.5 mg PO BEDTIME PRN #7 tab 06/09/21 Allergies Allergy/AdvReac Type Severity Reaction Status Date / Time No Known Allergies Allergy Verified 06/09/21 14:29 Review of Systems Review of Systems: Yes all other systems are reviewed and are negative [facility] Past Medical History Medical History Asthma COVID-19 Fibromyalgia Fibromyalgia Surgical History H/O tubal ligation Hx of section Social History Social History Household Members: Family Housing: House Do you presently have visiting nurse or other home services: No Alcohol intake: current Alcohol intake frequency: a few times a week Patient Tobacco Use Status: Former Tobacco user Use of substances other than those prescribed or required for medical reasons: No Advance Directives: Yes Advance Directives on File: Yes Advance Directives Date on File: 05/28/20 Patient : No service: No Current occupational status: employed Physical Exam Vital Signs: Vital Signs: Last Vital Signs Temp 98.3 F 06/09/21 18:19 Pulse 84 06/09/21 18:19 Resp 16 06/09/21 18:19 BP 120/85 06/09/21 18:19 Pulse Ox 97 06/09/21 18:19 BMI result Body Mass Index 35.6 Appearance: Alert. Oriented X3. No acute distress. anxious Eyes: no pallor icterus ENT: Pharynx normal. Oral Mucosa moist Neck: Normal inspection. Neck supple. CVS: Normal heart rate and rhythm. Pulses normal. Respiratory: No respiratory distress. Equal air entry bilateral, no wheezing/rales/rhonchi Abdomen: Soft and nontender. Bowel sounds are present, no mass palpable, no CVA tenderness Skin: Skin warm and dry. Normal skin color. Normal skin turgor. Extremities: No lower extremity edema. No calf tenderness Neuro: Oriented X 3. MDM - Chest Pain MDM Narrative Medical decision making narrative: patient with atypical chest pain with heart score of 0 with history of anxiety and fibromyalgia of discharge patient on Ativan. EKG was without any ischemic changes high sensitive troponin is negative Lab Data Attestation: I reviewed the patient's lab results. Result diagrams: 06/09/21 14:23 06/09/21 14:23 Labs: Lab Results 06/09/21 06/09/21 06/09/21 Range/Units 14:23 14:23 14:23 WBC 8.7 (4.8-10.8) X10*3/uL RBC 4.78 (4.20-5.50) X10*6/uL Hgb 14.7 (12.0-16.0) g/dl Hct 42.5 (37.0-47.0) % MCV 88.9 (80.0-98.0) fL MCH 30.8 (27.0-33.0) pg MCHC 34.6 (31.0-35.0) g/dl RDW 12.8 (11.0-16.0) % Plt Count 212 (160-400) X10*3/uL MPV 10.3 (9.4-12.3) fL Immature Gran % (Auto) 0.2 (0.0-0.4) % Neut % (Auto) 60.4 (45-73) % Lymph % (Auto) 29.9 (20-40) % [place] % (Auto) 7.6 (2-11) % Eos % (Auto) 1.7 (0-4) % Baso % (Auto) 0.2 (0-2) % Lymph # (Auto) 2.6 (1.2-4.9) X10*3/uL [place] # (Auto) 0.7 (0.1-1.2) X10*3/uL Eos # (Auto) 0.2 (0.0-0.4) X10*3/uL Baso # (Auto) 0.0 (0.0-0.2) X10*3/uL Abs Immat Gran (auto) 0.02 (0.00-0.03) X10*3/uL Absolute Neuts (auto) 5.3 (2.0-8.3) x10*3/uL Absolute Nucleated RBC 0.000 (0.0-0.012) X10*3/uL Nucleated RBC % (auto) 0.0 (0.0-0.2) /100WBC Sodium 138 (135-145) mmol/L Potassium 4.0 (3.3-5.1) mmol/L Chloride 109 H (96-108) mmol/L Carbon Dioxide 23 (22-29) mmol/L Anion Gap 10 L (12-20) BUN 12 (9-16) mg/dL Creatinine 0.85 (0.5-1.4) mg/dL Estim Creat Clear Calc 130.4 Estimated GFR > 60 Random Glucose 136 H (60-115) mg/dL Calcium 9.1 D (8.4-10.2) mg/dL Troponin I High Sens < 3.5 (<3.5-17.0) ng/L ECG Data ECG #1: Interpretation: sinus tachycardia with heart rate [address]-T changes normal intervals normal axis no acute ischemia Discharge Plan Discharge Clinical Impression: Atypical chest pain, Anxiety Patient Disposition: Home, Self-Care Instructions: Chest Pain (ED), Anxiety (ED) Additional Instructions: rest at home your chest pain is not from the heart is likely from anxiety /fibromyalgia take medication for anxiety in the nighttime to sleep as needed and follow with PCP Prescriptions: New lorazepam [Ativan] 0.5 mg tablet 0.5 mg PO BEDTIME PRN (Reason: sleep) Qty: 7 0RF No Action Robitussin Cough-Chest Jose Luis DM 5-50 mg/5 mL liquid 5 ml PO Q4-6H PRN (Reason: cough) Qty: 237 0RF prednisone 10 mg tablet 30 mg PO DAILY 30 Days Qty: 90 3RF
== END 2021-06-09 19:34 | disposition home or self-care (01) ==
PROVIDERS: Emergency Provider Internal Medicine; PCP Nurse Practitioner Adult Health
DX: R07.89 Other chest pain (principal); F41.9 Anxiety disorder, unspecified
CPT/HCPCS: 36415; 71045; 80048; 84484; 85025; 93005; 99284

== ENCOUNTER 2021-10-25 12:59 | Emergency (ER) | payer MEDICAID, SELFPAY ==
--- NOTE | ~2021-10-25 | XR_ITS ---
EXAMINATION: XR CHEST CLINICAL INFORMATION: Lightheadedness COMPARISON: 06/09/2021 TECHNIQUE: 2 views of the chest were obtained. FINDINGS: No significant abnormality is noted involving the heart, lungs, mediastinum, bony thorax or soft tissues. XR/XR chest 2V IMPRESSION: Unremarkable examination, without interval change.
[2021-10-25 13:28] VITALS: BP 142/85; PULSE 63; RESP 16; TEMP 36.2; O2SAT 100; BMI 33.0
[2021-10-25 13:47] LABS: MANUAL DIFF FLAG NO
[2021-10-25 13:49] LABS: Basophils Percent Auto 0.4 % (0-2); Eosinophils Percent Auto 0.4 % (0-4); Hematocrit 42.7 % (37.0-47.0); Hemoglobin 14.7 g/dl (12.0-16.0); Imm Gran Abs Auto 0.01 X10*3/uL (0.00-0.03); Imm Gran Pct Auto 0.1 % (0.0-0.4); Lymphocytes Absolute Auto 2.4 X10*3/uL (1.2-4.9); Lymphocytes Percent Auto 31.2 % (20-40); Mean Corpuscular HGB Conc 34.4 g/dl (31.0-35.0); Mean Corpuscular Volume 90.1 fL (80.0-98.0); Mean Platelet Volume 10.7 fL (9.4-12.3); Monocytes Absolute Auto 0.5 X10*3/uL (0.1-1.2); Neutrophils Absolute Auto 4.8 x10*3/uL (2.0-8.3); Neutrophils Percent Auto 61.9 % (45-73); Platelet Count 207 X10*3/uL (160-400); Red Blood Count 4.74 X10*6/uL (4.20-5.50); Red Cell Distribution Width 12.3 % (11.0-16.0); White Blood Count 7.8 X10*3/uL (4.8-10.8)
[2021-10-25 13:50] LABS: Appearance Urine Clear; Color Urine Yellow; Glucose Urine UA Negative (Negative); Leukocyte Esterase Urine Negative (Negative); Nitrite Urine Negative (Negative); Urine Blood Negative (Negative); Urine Ketones 15 mg/dL (Negative); Urine Protein Negative (Neg-Trace)
[2021-10-25 14:07] LABS: Alanine Aminotransferase 40 U/L (0-31); Albumin Level 4.6 g/dL (3.5-5.0); Alkaline Phosphatase 91 U/L (39-117); Anion Gap 14 (12-20); Aspartate Amino Transferase 25 U/L (5-31); Bilirubin Direct 0.3 mg/dL (0.0-0.5); Bilirubin Total 0.7 mg/dL (0.0-1.0); Blood Urea Nitrogen 13 mg/dL (9-16); Carbon Dioxide 25 mmol/L (22-29); Chloride 105 mmol/L (96-108); Creatinine Clr Calc Pharmacy 148.7; Estimated Glomerular Filt Rate > 60; Glucose Random 93 mg/dL (60-115); Potassium 4.3 mmol/L (3.3-5.1); Sodium 140 mmol/L (135-145); Total Protein 7.9 g/dL (6.5-8.0)
--- NOTE | 2021-10-25 19:21 | ECG_ITS ---
Test Reason : cp Blood Pressure : / mmHG Vent. Rate : 061 BPM Atrial Rate : 061 BPM P-R Int : 154 ms QRS Dur : 098 ms QT Int : 440 ms P-R-T Axes : 049 023 033 degrees QTc Int : 442 ms Normal sinus rhythm T wave abnormality, consider anterior ischemia Abnormal ECG When compared with ECG of 09-JUN-2021 14:11, Vent. rate has decreased BY 51 BPM T wave inversion now evident in Anterior leads Referred By: Karlo Delgado Electronically Signed By:NIKKO MENDIETA
[2021-10-25] MEDS: Magnesium Hydrox/Alum Hydrox 30 ML ORAL.SUSP PO (19:28)
[2021-10-25] MEDS: Lidocaine HCl Viscous 2 % 15 ML SOLUTION 10 ML PO (19:28)
[2021-10-25] MEDS: PHENobarb/Hyoscy/Atropine/Scop 10 ML ELIXIR PO (19:28)
--- NOTE | 2021-10-25 19:45 | ED_ITS ---
HPI - Abdominal Pain General Chief Complaint: Abdominal Pain Stated Complaint: chest pain, abd pain, hurts to breathe Time Seen by Provider: 10/25/21 19:01 Source: patient Mode of arrival: ambulatory Limitations: no limitations History of Present Illness HPI narrative: 31-year-old female who presents emergency department for evaluation of abdominal pain x1 week and chest pain. The patient states that approximately 1 week prior she was eating an avocado when she had sudden onset of abdominal pain. She points to her epigastric area and left chest area when asked to localize the pain. She states the pain is been a constant, cramping sensation with a contraction like healing and her lower back. She states the pain waxes and wanes in intensity and is 8/10 at its worst. The pain is worse with eating. She also was experiencing left-sided chest pain. She describes the pain as a sharp pain which is worse with movement but does not change with breathing. She states that she felt lightheaded and dizzy today as well which was a new symptom. The patient took ibuprofen with some relief for pain. She also took Flexeril with some relief for pain. She has had a decreased appetite but has been able to drink fluid. She has not noticed any swelling in her extremities she has not gone on any long trips. She does not take control pills. She denied fever, chills, rhinorrhea, sore throat, cough, dyspnea on exertion, nausea, vomiting, diarrhea, frequency, dysuria, black stools or bloody stools. MD elicited complaint: abdominal pain Pertinent past history: none Onset (ago): week(s) (7) Pain Consistency: constant (Waxes and wanes in intensity) Location: epigastric and other (Left chest) Severity: severe Pain scale (0-10): 8 Quality: cramping Radiation: back (Lumbar area) Migration to: no migration Exacerbating factors: eating Related Data Previous Rx's Medication Instructions Recorded dextromethorphan 5 mg-guaifenesin 5 ml PO Q4-6H PRN cough #237 mL 05/27/20 50 mg/5 mL oral liquid (Robitussin Cough-Chest Congestion DM) prednisone 10 mg tablet 30 mg PO DAILY 30 days #90 tabs 07/12/20 lorazepam 0.5 mg tablet (Ativan) 0.5 mg PO BEDTIME PRN sleep #7 tabs 06/09/21 omeprazole 20 mg capsule,delayed 20 mg PO DAILY 30 days #30 caps 10/25/21 release Allergies Allergy/AdvReac Type Severity Reaction Status Date / Time No Known Allergies Allergy Verified 06/09/21 14:29 Review of Systems Review of Systems Yes all other systems are reviewed and are negative [facility] Past Medical History [facility] Narrative: Past surgical history: BTL, liposuction-3 years prior. Social history: The patient does vape nicotine products. She drinks alcohol 3 times a week (white claws). She denies drug use. Medical History Asthma COVID-19 Fibromyalgia Fibromyalgia Surgical History H/O tubal ligation Hx of section Social History Social History Household Members: Family Housing: House Do you presently have visiting nurse or other home services: No Alcohol intake: current Alcohol intake frequency: a few times a week Patient Tobacco Use Status: Former Tobacco user Advance Directives: Yes Advance Directives on File: Yes Advance Directives Date on File: 05/28/20 service: No Current occupational status: employed Physical Exam ED Vital Signs: Vital Signs - 24 hr 10/25/21 13:28 Temperature 97.2 F Pulse Rate 63 Respiratory Rate 16 Blood Pressure 142/85 H Pulse Oximetry 100 Oxygen Delivery Method Room Air BMI result Body Mass Index 33.0 Const General: cooperative and no acute distress Orientation/consciousness: oriented to person and oriented to place Limitations: no limitations HENMD Head: Yes normal to inspection, Yes normocephalic and Yes atraumatic Ears: external ears normal General nose exam: Normal external nose present Face and sinus: Yes normal facial exam Mouth: Normal oral and palatal mucosa present Throat: Yes posterior oropharynx normal Eyes General: appearance normal, both eyes and all related structures Pupils: Equal, round and reactive pupils present Neck Neck: Yes normal visual inspection, Yes no lymphadenopathy, Yes trachea midline and Yes supple Chest Chest palpation & inspection: normal inspection of the chest and tenderness sternum and costochondral junction (Left) Resp Effort & Inspection: normal respiratory effort and able to speak in complete sentences Auscultation: clear to auscultation bilaterally Cardio Rate: regular rate Rhythm: regular rhythm Heart sounds: S1 normal heart sound present, S2 normal heart sound present and no murmurs GI Inspection: Yes normal to inspection Palpation (GI): Soft to palpation, Tenderness to palpation present (GI) in the epigastrum (Moderate) and no guarding Auscultation: normal bowel sounds General: Yes no CVA tenderness Back/Spine/Pelvis Back: no CVA tenderness Skin General skin exam: no rashes or lesions noted Neuro General: oriented to person and oriented to place Cranial nerves: Yes CN's II-XII intact bilaterally and Yes Equal, round and reactive pupils present Cognition (Neuro): normal cognition Motor exam (neuro): 5/5 motor strength present throughout Extrem General: Yes normal to inspection Psych Appearance: grossly normal Speech and movement: Normal speech and movement present Affect: normal affect Attitude: cooperative Thought process: Normal thought process present Thought content: Normal thought content present Course Course Course Narrative: 31-year-old female who presents emergency department for evaluation of epigastric abdominal pain and left-sided chest pain x1 week. Vital signs revealed an elevated blood pressure of 142/85 otherwise were unremarkable. Physical examination did reveal epigastric tenderness and left-sided costochondral and sternal tenderness. Laboratory evaluation revealed a normal CBC and CMP. Twelve EKG revealed sinus rhythm with inverted T-waves V1 through V3 but this is unchanged compared to 03/15/2020. Chest x-ray revealed no acute findings. The patient is PERC negative. The patient's presentation is consistent with gastritis and left-sided costochondritis. I did discuss this with the patient. The patient was given Maalox 30 cc, viscous lidocaine 10 cc and 10 cc with improvement of her abdominal pain. Patient was started on omeprazole 30 mg once a day for 1 week advised take Tylenol for chest pain. She was given printed and verbal instructions and discharged home. MDM - Abdominal Pain Lab Data Attestation: I reviewed the patient's lab results. Result diagrams: 10/25/21 13:38 10/25/21 13:38 Labs: Lab Results 10/25/21 10/25/21 10/25/21 Range/Units 13:38 13:38 13:39 WBC 7.8 (4.8-10.8) X10*3/uL RBC 4.74 (4.20-5.50) X10*6/uL Hgb 14.7 (12.0-16.0) g/dl Hct 42.7 (37.0-47.0) % MCV 90.1 (80.0-98.0) fL MCH 31.0 (27.0-33.0) pg MCHC 34.4 (31.0-35.0) g/dl RDW 12.3 (11.0-16.0) % Plt Count 207 (160-400) X10*3/uL MPV 10.7 (9.4-12.3) fL Immature Gran % (Auto) 0.1 (0.0-0.4) % Neut % (Auto) 61.9 (45-73) % Lymph % (Auto) 31.2 (20-40) % [place] % (Auto) 6.0 (2-11) % Eos % (Auto) 0.4 (0-4) % Baso % (Auto) 0.4 (0-2) % Lymph # (Auto) 2.4 (1.2-4.9) X10*3/uL [place] # (Auto) 0.5 (0.1-1.2) X10*3/uL Eos # (Auto) 0.0 (0.0-0.4) X10*3/uL Baso # (Auto) 0.0 (0.0-0.2) X10*3/uL Abs Immat Gran (auto) 0.01 (0.00-0.03) X10*3/uL Absolute Neuts (auto) 4.8 (2.0-8.3) x10*3/uL Absolute Nucleated RBC 0.000 (0.0-0.012) X10*3/uL Nucleated RBC % (auto) 0.0 (0.0-0.2) /100WBC Sodium 140 (135-145) mmol/L Potassium 4.3 (3.3-5.1) mmol/L Chloride 105 (96-108) mmol/L Carbon Dioxide 25 (22-29) mmol/L Anion Gap 14 (12-20) BUN 13 (9-16) mg/dL Creatinine 0.71 (0.5-1.4) mg/dL Estim Creat Clear Calc 148.7 Estimated GFR > 60 Random Glucose 93 (60-115) mg/dL Calcium 9.0 (8.4-10.2) mg/dL Total Bilirubin 0.7 (0.0-1.0) mg/dL Direct Bilirubin 0.3 (0.0-0.5) mg/dL AST 25 (5-31) U/L ALT 40 H (0-31) U/L Alkaline Phosphatase 91 (39-117) U/L Total Protein 7.9 (6.5-8.0) g/dL Albumin 4.6 (3.5-5.0) g/dL Urine Color Yellow Urine Appearance Clear Urine pH 6.0 (5.0-8.0) Ur Specific [place] 1.010 (1.005-1.025) Urine Protein Negative (Neg-Trace) mg/dL Urine Glucose (UA) Negative (Negative) mg/dL Urine Ketones 15 (Negative) mg/dL Urine Blood Negative (Negative) Urine Nitrite Negative (Negative) Ur Leukocyte Esterase Negative (Negative) ECG Data Attestation: I personally reviewed and interpreted this ECG as follows: Interpretation: 192: Normal sinus rhythm rate of 61, normal CA interval, QRS duration QTC interval, no ST segment elevation, no ST segment depression, inverted T-waves V1 through V3, no PACs, no PVCs. Compared to EKG dated 03/15/2020 the inverted T- waves are old. Discharge Plan Discharge Clinical Impression: Gastritis Qualifiers: Chronicity: acute Gastritis bleeding: without bleeding Chest pain Qualifiers: Chest pain type: unspecified Qualified Code(s): R07.9 - Chest pain, unspecified Patient Disposition: Home, Self-Care Instructions: Gastritis (ED), Chest Wall Pain (ED) Additional Instructions: Your blood work was normal. Your chest x-ray was unremarkable. Your urinalysis was normal. Your EKG was unchanged from a previous EKG from 03/15/2020. Your findings are consistent with inflammation of your stomach (gastritis) and inflammation of the joints and muscles of your chest wall (costochondritis). Take Prilosec (omeprazole) 20 mg pills, 1 pill once a day for 1 month. This medication shuts off your acid production and let us the inflammation in your esophagus and stomach heal. For the next week use Tums to 3 tablets chew the tablets and then swallow them and drink a glass of water. Do this 3 to 4 times a day to help with your pain until the Prilosec starts to work in 3-7 days. Take Tylenol (acetaminophen) 500 mg pills, 2 pills every 4 to 6 hours as needed for pain. Take your Flexeril (cyclobenzaprine) as prescribed by your doctor. Follow-up with your doctor in 2 days. Please return to the emergency department if your symptoms get worse or if you develop any symptoms that are concerning to you. Prescriptions: New omeprazole 20 mg capsule,delayed release(DR/EC) 20 mg PO DAILY 30 Days Qty: 30 0RF No Action Robitussin Cough-Chest Jose Luis DM 5-50 mg/5 mL liquid 5 ml PO Q4-6H PRN (Reason: cough) Qty: 237 0RF lorazepam [Ativan] 0.5 mg tablet 0.5 mg PO BEDTIME PRN (Reason: sleep) Qty: 7 0RF prednisone 10 mg tablet 30 mg PO DAILY 30 Days Qty: 90 3RF Interventions: ED Discharge Assessment Last Done: 10/25/21 20:04 Discharge Date/Time: 10/25/21 20:06
== END 2021-10-25 20:06 | disposition home or self-care (01) ==
PROVIDERS: Emergency Provider Emergency Medicine Emergency Medical Services; PCP Nurse Practitioner Adult Health
DX: K29.00 Acute gastritis without bleeding (principal); R07.9 Chest pain, unspecified; Z87.891 Personal history of nicotine dependence; Z79.899 Other long term (current) drug therapy
CPT/HCPCS: 36415; 71046; 80048; 80076; 81003; 85025; 93005; 99283; 99285

== ENCOUNTER 2023-01-03 23:45 | Emergency (ER) | payer MEDICAID, SELFPAY ==
[2023-01-03 23:52] VITALS: BP 124/86; PULSE 86; RESP 20; TEMP 36.4; O2SAT 97; BMI 33.0
--- NOTE | 2023-01-04 01:02 | ED.GENADULT ---
HPI - General Adult General Chief complaint: Dizziness Stated complaint: Incident? Now feeling dizziness/ unbalanced Time Seen by Provider: 01/04/23 00:54 Source: patient Mode of arrival: ambulatory Limitations: no limitations History of Present Illness HPI narrative: Patient with increase anxiety increased stress at home left her job unable to sleep for last 36 hours denies any SI completing our headache dizziness no vomiting no chest pain or palpitation Related Data Previous Rx's Medication Instructions Recorded dextromethorphan 5 mg-guaifenesin 5 ml PO Q4-6H PRN cough #237 mL 05/27/20 50 mg/5 mL oral liquid (Robitussin Cough-Chest Congestion DM) prednisone 10 mg tablet 30 mg (3 x 10 mg) PO DAILY 30 days 07/12/20 #90 tabs lorazepam 0.5 mg tablet (Ativan) 0.5 mg PO BEDTIME PRN sleep #7 tabs 06/09/21 omeprazole 20 mg capsule,delayed 20 mg PO DAILY 30 days #30 caps 10/25/21 release alprazolam 0.5 mg tablet 0.5 mg PO BID PRN anxiety/sleep 01/04/23 #20 tabs Allergies Allergy/AdvReac Type Severity Reaction Status Date / Time No Known Allergies Allergy Verified 06/09/21 14:29 Review of Systems Review of Systems: Yes all other systems are reviewed and are negative PMFSH Past Medical History Medical History Fibromyalgia Fibromyalgia COVID-19 Asthma Surgical History Hx of section H/O tubal ligation Social History Social History Household Members: Family Housing: House Do you presently have visiting nurse or other home services: No Alcohol intake: current Alcohol intake frequency: a few times a month Patient Tobacco Use Status: Former Tobacco user Smoked in Last 30 Days: No Use of substances other than those prescribed or required for medical reasons: No Advance Directives: Yes Advance Directives on File: Yes Advance Directives Date on File: 05/28/20 service: No Current occupational status: employed Physical Exam ED Vital Signs: Vital Signs - 24 hr 01/03/23 23:52 Temperature 97.6 F Pulse Rate 86 Respiratory Rate 20 Blood Pressure 124/86 Pulse Oximetry 97 Oxygen Delivery Method Room Air BMI result Body Mass Index 33.0 Appearance: Alert. Oriented X3. No acute distress. Eyes: PERRLA, No Nystagmus ENT: Pharynx normal. Oral Mucosa moist Neck: Normal inspection. Neck supple. CVS: Normal heart rate and rhythm. Pulses normal. Respiratory: No respiratory distress. Equal air entry bilateral, no wheezing/rales/rhonchi Abdomen: Soft and nontender. Bowel sounds are present, no mass palpable, no CVA tenderness Skin: Skin warm and dry. Normal skin color. Normal skin turgor. Extremities: No lower extremity edema. No calf tenderness Neuro: Oriented X 3. No motor deficit. No sensory deficit.No cerebellar signs , cranial nerves II-XII intact Medical Decision Making Medical Decision Making MDM Narrative: Take medication for anxiety as prescribed patient is unable to sleep for last few days likely the cause of her symptoms Differential Diagnosis Differential Diagnoses: The differential diagnosis associated with the presentation includes Anxiety/insomnia/tension headache Discharge Plan Discharge Clinical Impression: Anxiety Patient Disposition: Home, Self-Care Instructions: Anxiety (ED) Additional Instructions: Take medication to relax and sleep as prescribed Follow-up with PCP Prescriptions: New alprazolam 0.5 mg tablet 0.5 mg PO BID PRN (Reason: anxiety/sleep) Qty: 20 0RF No Action Robitussin Cough-Chest Jose Luis DM 5-50 mg/5 mL liquid 5 ml PO Q4-6H PRN (Reason: cough) Qty: 237 0RF lorazepam [Ativan] 0.5 mg tablet 0.5 mg PO BEDTIME PRN (Reason: sleep) Qty: 7 0RF omeprazole 20 mg capsule,delayed release(DR/EC) 20 mg PO DAILY 30 Days Qty: 30 0RF prednisone 10 mg tablet 30 mg PO DAILY 30 Days Qty: 90 3RF
[2023-01-04] MEDS: ALPRAZolam 0.5 MG TABLET PO (01:58)
[2023-01-04 02:00] VITALS: BP 126/76; PULSE 97; RESP 16; TEMP 36.6; O2SAT 98
== END 2023-01-04 02:00 | disposition home or self-care (01) ==
PROVIDERS: Emergency Provider Internal Medicine; PCP Nurse Practitioner Adult Health
DX: F41.1 Generalized anxiety disorder (principal); F43.0 Acute stress reaction; R42 Dizziness and giddiness; R51.9 Headache, unspecified; Z87.891 Personal history of nicotine dependence; Z79.899 Other long term (current) drug therapy
CPT/HCPCS: 99283; 99284

== ENCOUNTER 2024-06-17 12:22 | Emergency (ER) | payer MEDICAID, SELFPAY ==
--- NOTE | ~2024-06-17 | CT_ITS ---
EXAMINATION: CT HEAD WITHOUT IV CONTRAST HISTORY: left sided headache. TECHNIQUE: Unenhanced helical CT of the head was performed per standard departmental protocol. Coronal and sagittal reformats of the head were also evaluated. One or more of the following techniques was used for dose reduction: Automated exposure control, adjustment of the mA and/or kV according to patient size, use of iterative reconstruction technique. DLP: 715 mGy-cm COMPARISON: There are no prior studies for comparison. FINDINGS: BRAIN: The brain parenchyma is unremarkable. There is normal rogers/white differentiation. The ventricular system is normal in size and configuration. There is no mass effect or midline shift. No intra- or extra-axial fluid collections are identified. SINUSES: The visualized paranasal sinuses are clear. The mastoid air cells and middle ear cavities are well pneumatized. ORBITS: The visualized orbits are unremarkable. BONES/SOFT TISSUES: The extracranial soft tissues are unremarkable. The calvarium is intact. No suspicious lytic or sclerotic lesions. CT/CT head/brain wo IV con IMPRESSION: Unremarkable unenhanced head CT. Electronically signed by: Koko Montoya MD 06/17/2024 02:42 PM EDT
[2024-06-17 12:24] VITALS: BP 150/87; PULSE 89; RESP 18; TEMP 36.6; O2SAT 98; BMI 31.9
--- NOTE | 2024-06-17 12:25 | ED_ITS ---
HPI - General Adult General Chief complaint: General Medical Stated complaint: Facial pain L side Time Seen by Provider: 06/17/24 13:33 Source: patient, RN notes reviewed and old records reviewed Mode of arrival: ambulatory Limitations: no limitations History of Present Illness ED Provider: Jarett ANDERSEN narrative: 33-year-old female presents for evaluation of left-sided facial pain. the patient reports pain since yesterday that radiates to the left side of her head She reports the pain radiates to the left side of her head causing a headache as well as the left ear She reports she had a recent dentist appointment and everything was normal. she denies any dental pain or swelling she reports that the left side of her face is tender she has pain to the sinus in the left but denies any congestion, runny nose denies any fevers or chills Related Data Previous Rx's ?Medication ?Instructions ?Recorded dextromethorphan 5 mg-guaifenesin 5 ml PO Q4-6H PRN cough #237 mL 05/27/20 50 mg/5 mL oral liquid (Robitussin Cough-Chest Congestion DM) prednisone 10 mg tablet 30 mg (3 x 10 mg) PO DAILY 30 days 07/12/20 #90 tabs lorazepam 0.5 mg tablet (Ativan) 0.5 mg PO BEDTIME PRN sleep #7 tabs 06/09/21 omeprazole 20 mg capsule,delayed 20 mg PO DAILY 30 days #30 caps 10/25/21 release alprazolam 0.5 mg tablet 0.5 mg PO BID PRN anxiety/sleep 01/04/23 #20 tabs Allergies Allergy/AdvReac Type Severity Reaction Status Date / Time No Known Allergies Allergy Verified 06/17/24 12:25 Review of Systems 2 Constitutional: Constitutional: Denies body ache(s), Denies chills and Denies headache(s) Eyes: Eyes: Denies blurry vision ENT: Denies dysphagia, Denies vertigo, Denies dizziness, Reports otalgia, Reports facial pain, Denies headache(s), Denies lip swelling, Denies epistaxis, Reports sinus pain, Denies sinus pressure and Denies sore throat Cardiovascular: Cardiovascular: Denies chest pain Respiratory: Respiratory: Denies cough Gastrointestinal: Gastrointestinal: Denies abdominal pain, Denies dysphagia, Denies nausea and Denies vomiting Musculoskeletal: Musculoskeletal: Denies back pain Integumentary/Breasts: Skin/Breast: Denies rash Neurologic: Denies vertigo, Denies dizziness and Denies headache(s) Psychiatric: Psychiatric: Denies anxiety Allergic/Immunologic: Allergic/Immunologic: Denies lip swelling PMFSH Past Medical History Medical History Fibromyalgia Fibromyalgia COVID-19 Asthma Surgical History Hx of section H/O tubal ligation Social History Social History Household Members: Family Housing: House Do you presently have visiting nurse or other home services: No Alcohol intake: current Alcohol intake frequency: a few times a month Patient Tobacco Use Status: Former Tobacco user Advance Directives: Yes Advance Directives on File: Yes Advance Directives Date on File: 05/28/20 Do you have a plan to hurt others: No Plan service: No Current occupational status: employed Physical Exam ED Vital Signs: Vital Signs - 24 hr 06/17/24 12:24 Temperature 98 F Pulse Rate 89 Respiratory Rate 18 Blood Pressure 150/87 H Pulse Oximetry 98 Oxygen Delivery Method Room Air BMI result Body Mass Index 31.9 Const General: healthy appearing, comfortable, no acute distress, alert and awake Nutritional Appearance: well nourished Orientation/consciousness: patient oriented x3 HENMT Other: tenderness to palpation of the left TMJ without deformity. Head: Yes normocephalic and Yes atraumatic Ears: TM's normal bilaterally and EAC's normal Face and sinus: Yes face symmetric and Yes sinus tenderness ( Left maxillary sinus) Teeth and gingiva: dentition normal and gingiva normal Throat: Yes posterior oropharynx normal Eyes Eyelids: Yes eyelids normal Conjunctivae: conjunctivae normal Sclerae: sclerae normal Corneas: corneas normal Pupils: Equal, round and reactive pupils present EOM: EOMs intact bilaterally Neck Neck: Yes full ROM Resp Effort & Inspection: normal respiratory effort, able to speak in complete sentences and not labored GI Inspection: No distended Palpation (GI): Soft to palpation, not firm, nontender, no guarding and not rigid Skin General skin exam: elasticity normal Neuro General: patient oriented x3 Cranial nerves: Yes Equal, round and reactive pupils present and Yes Bilaterally intact EOM present Cognition (Neuro): normal cognition Extrem Other: Moving all extremities well without any obvious deformities Course Course Course Narrative: RME, this is a rapid medical exam performed by Shane Denson please refer to primary provider for complete H&P- 33-year-old female presents for evaluation of left facial pain that radiates up into her head. Symptoms started yesterday. She reports that she was in the shower in the pain caused her to be dizzy. denies any dental pain. She does have left ear pain. denies any history of headaches. Plan for labs including inflammatory markers Medical Decision Making Medical Decision Making [facility] Narrative: 33-year-old female presents for evaluation of left-sided facial pain. Clinically her symptoms are most likely related to TMJ dysfunction as she was left facial pain but no other associated symptoms. No evidence of otitis media, no evidence of dental infection or gingivitis. Less likely to be temporal arteritis. ESR is within normal limits. The patient is concerned that she had an episode of dizziness while in the shower which could have been related to her level of pain palsy we will get a CT scan of the brain as she has no history of headaches Differential Diagnosis Differential Diagnoses: The differential diagnosis associated with the presentation includes TMJ dysfunction Acute headache Otitis media Gingivitis Dental caries Lab Data [facility] Lab Attestation statement: I reviewed the patient's lab results. no leukocytosis or anemia. Normal platelet count. No electrolyte abnormalities 06/17/24 12:33 06/17/24 12:32 Labs: Lab Results 06/17/24 06/17/24 Range/Units 12:32 12:33 WBC 7.3 (4.8-10.8) X10*3/uL RBC 4.51 (4.20-5.50) X10*6/uL Hgb 14.2 (12.0-16.0) g/dl Hct 39.7 (37.0-47.0) % MCV 88.0 (80.0-98.0) fL MCH 31.5 (27.0-33.0) pg MCHC 35.8 H (31.0-35.0) g/dl RDW 12.9 (11.0-16.0) % Plt Count 208 (160-400) X10*3/uL MPV 10.3 (9.4-12.3) fL Immature Gran % (Auto) 0.3 (0.0-0.4) % Neut % (Auto) 55.3 (45-73) % Lymph % (Auto) 35.7 (20-40) % Oxford % (Auto) 7.7 (2-11) % Eos % (Auto) 0.7 (0-4) % Baso % (Auto) 0.3 (0-2) % Lymph # (Auto) 2.6 (1.2-4.9) X10*3/uL Oxford # (Auto) 0.6 (0.1-1.2) X10*3/uL Eos # (Auto) 0.1 (0.0-0.4) X10*3/uL Baso # (Auto) 0.0 (0.0-0.2) X10*3/uL Abs Immat Gran (auto) 0.02 (0.00-0.03) X10*3/uL Absolute Neuts (auto) 4.0 (2.0-8.3) x10*3/uL Absolute Nucleated RBC 0.000 (0.0-0.012) X10*3/uL Nucleated RBC % (auto) 0.0 (0.0-0.2) /100WBC ESR 10 (0-20) MM/HR Sodium 138 (135-145) mmol/L Potassium 4.3 (3.3-5.1) mmol/L Chloride 107 (96-108) mmol/L Carbon Dioxide 24 (22-29) mmol/L Anion Gap 11 L (12-20) BUN 11 (9-16) mg/dL Creatinine 0.69 (0.5-1.4) mg/dL Estim Creat Clear Calc 147.7 Estimated GFR > 60 Random Glucose 105 (60-115) mg/dL Calcium 8.9 (8.4-10.2) mg/dL C-Reactive Protein 0.33 (< or = 0.50) mg/dL Beta HCG, Quant < 2 mIU/mL Radiology Impression Discussion of test interpretation with radiology: I have reviewed the radiologist's reading. Radiologist Impression: FINDINGS: BRAIN: The brain parenchyma is unremarkable. There is normal rogers/white differentiation. The ventricular system is normal in size and configuration. There is no mass effect or midline shift. No intra- or extra-axial fluid collections are identified. SINUSES: The visualized paranasal sinuses are clear. The mastoid air cells and middle ear cavities are well pneumatized. ORBITS: The visualized orbits are unremarkable. BONES/SOFT TISSUES: The extracranial soft tissues are unremarkable. The calvarium is intact. No suspicious lytic or sclerotic lesions. CT/CT head/brain wo IV con IMPRESSION: Unremarkable unenhanced head CT. Electronically signed by: Koko Montoya MD 06/17/2024 02:42 PM EDT RP Discharge Plan Discharge Clinical Impression: Left-sided temporomandibular joint pain-dysfunction syndrome Patient Disposition: Home, Self-Care Instructions: Temporomandibular Disorder (ED) Additional Instructions: Your workup in the ER today was reassuring. This includes your blood work as well as your CT scan. Your pain is most likely related to TMJ dysfunction initial treatment is ibuprofen and Tylenol for the pain. There is some information in your discharge about TMJ dysfunction in you may look up exercises as well follow-up with your primary doctor, return for new or worsening symptoms Prescriptions: No Action Robitussin Cough-Chest Jose Luis DM 5-50 mg/5 mL liquid 5 ml PO Q4-6H PRN (Reason: cough) Qty: 237 0RF lorazepam [Ativan] 0.5 mg tablet 0.5 mg PO BEDTIME PRN (Reason: sleep) Qty: 7 0RF omeprazole 20 mg capsule,delayed release(DR/EC) 20 mg PO DAILY 30 Days Qty: 30 0RF alprazolam 0.5 mg tablet 0.5 mg PO BID PRN (Reason: anxiety/sleep) Qty: 20 0RF prednisone 10 mg tablet 30 mg PO DAILY 30 Days Qty: 90 3RF Stand Alone Forms: Work/School Release Print Language: Belarusian
[2024-06-17 12:37] LABS: MANUAL DIFF FLAG NO
[2024-06-17 12:39] LABS: Basophils Percent Auto 0.3 % (0-2); Eosinophils Absolute Auto 0.1 X10*3/uL (0.0-0.4); Eosinophils Percent Auto 0.7 % (0-4); Hematocrit 39.7 % (37.0-47.0); Hemoglobin 14.2 g/dl (12.0-16.0); Imm Gran Abs Auto 0.02 X10*3/uL (0.00-0.03); Imm Gran Pct Auto 0.3 % (0.0-0.4); Lymphocytes Absolute Auto 2.6 X10*3/uL (1.2-4.9); Lymphocytes Percent Auto 35.7 % (20-40); Mean Corpuscular HGB Conc 35.8 g/dl (31.0-35.0); Mean Corpuscular Hemoglobin 31.5 pg (27.0-33.0); Mean Platelet Volume 10.3 fL (9.4-12.3); Monocytes Absolute Auto 0.6 X10*3/uL (0.1-1.2); Monocytes Percent Auto 7.7 % (2-11); Neutrophils Percent Auto 55.3 % (45-73); Platelet Count 208 X10*3/uL (160-400); Red Blood Count 4.51 X10*6/uL (4.20-5.50); Red Cell Distribution Width 12.9 % (11.0-16.0); White Blood Count 7.3 X10*3/uL (4.8-10.8)
[2024-06-17 12:59] LABS: Anion Gap 11 (12-20); Blood Urea Nitrogen 11 mg/dL (9-16); C Reactive Protein 0.33 mg/dL (< or = 0.50); Calcium 8.9 mg/dL (8.4-10.2); Carbon Dioxide 24 mmol/L (22-29); Chloride 107 mmol/L (96-108); Creatinine Clr Calc Pharmacy 147.7; Estimated Glomerular Filt Rate > 60; Glucose Random 105 mg/dL (60-115); Potassium 4.3 mmol/L (3.3-5.1); Sodium 138 mmol/L (135-145)
[2024-06-17 13:07] LABS: HCG Quantitative < 2 mIU/mL
[2024-06-17 13:24] LABS: Erythrocyte Sedimentation Rate 10 MM/HR (0-20)
[2024-06-17 15:06] VITALS: BP 150/87; PULSE 89; RESP 18; TEMP 36.6; O2SAT 98
--- OUTSIDE RECORDS SUMMARY | 2024-06-17 16:32 | XMS_ITS | Clinical Summary ---
Author Organization [facility] Address [address] [place] [address] Care Team Providers Care Bag Machine Operator Name Role Phone Melonie Garcia Primary Care Provider [phone] Allergies Active Allergy Reactions Criticality Noted Date Comments Naproxen Abdominal Pain 10/27/2019 Trazodone Abdominal Pain 10/27/2019 Medications multivitamin capsule Take 1 capsule by mouth daily. Active fluocinonide (LIDEX) 0.05% solutionIndicat ions:Nonscarrin g hair loss Apply topically twice daily to scalp. 180 mL 3 0 Active ketoconazole (NIZORAL) 2% shampooIndicati ons:Female pattern hair loss,Seborrheic dermatitis Apply to damp skin, lather, leave on 5 to 10 minutes, and rinse. 2-3 times weekly. 120 mL 11 1 Active fluocinonide (LIDEX) 0.05 % gelIndications: Alopecia areata Apply a thin layer to area of hair loss on scalp twice daily. Do not apply to face/groin/ski n folds. 30 g 2 1 Active guaiFENesin (ROBITUSSIN) 100 mg/5 mL syrup Take 200 mg by mouth 3 times daily as needed. Active ibuprofen (MOTRIN) 600 mg tablet TAKE 1 TAB BY MOUTH EVERY 6 HOURS NEEDED FOR PAIN FOR UP TO 30 DAYS. 1 Active Active Problems No known active problems Social History Tobacco Use Types Packs/Day Years Used Date Smoking Tobacco: Former Smokeless Tobacco: Never Comments Unknown Sex and Gender Information Value Date Recorded Sex Assigned at Not on file Legal Sex Female 8:38 AM EDT Gender Identity Not on file Sexual Orientation Not on file Last Filed Vital Signs Vital Sign Reading Time Taken Comments Blood Pressure - - Pulse - - Temperature - - Respiratory Rate - - Oxygen Saturation - - Inhaled Oxygen Concentration - - Weight 95.3 kg (210 lb) 05/05/2020 1:52 PM EST Height 177.8 cm (5' 10 ) 05/05/2020 1:52 PM EST Body Mass Index 30.13 05/05/2020 1:52 PM EST Plan of Treatment Health Maintenance Due Date Last Done Comments Cervical Cancer Screening 1989 HIV Screening 1989 HPV and Pap Smear 1989 Pap Smear 1989 Varicella Vaccines (1 of 2 - 13+ 2-dose series) 2002 Hepatitis B Vaccines (1 of 3 - 19+ 3-dose series) 2008 DTaP,Tdap,and Td Vaccines (1 - Tdap) 03/29/2017 03/28/2017 COVID-19 Vaccine (1 - 2023-2 5 season) 2023 Alcohol/Substance Use Screening 03/12/2024 Influenza Vaccine (Season Ended) 2024 12/10/2018, 02/09/2015 RSV Vaccine (60+ years old and patients) (1 - 1-dose 75+ series) 2064 Pneumococcal Vaccine: Pediatric (0-5 Years) and At-Risk Patients (6-50 Years) Aged Out No longer eligible based on patient's age [id number] [facility] Care Teams Bag Machine Operator Relationship Specialty Start Date End Date Melonie Garcia [address] [place] [address] [id number] [facility] - General 09/30/19
--- OUTSIDE RECORDS SUMMARY | 2024-06-17 16:32 | XMS_ITS | Referral Summary ---
Author Organization [facility] Address [address] [place] [address] Care Team Providers Care Grease Refining Supervisor Name Role Phone Melonie Garcia Primary Care Provider [phone] Allergies Active Allergy Reactions Criticality Noted Date [...] 05/05/2020 1:52 PM EST Plan of Treatment Not on file Insurance [employer] Care Teams Grease Refining Supervisor Relationship Specialty Start Date End Date Melonie Garcia [address] [address] PCP - General 09/30/19
--- OUTSIDE RECORDS SUMMARY | 2024-06-17 16:32 | XMS_ITS | Clinical Summary ---
Author Organization [facility] it Address [address] [place] [address] Care Team Providers Care Psychiatric Technician Assistant Name Role Phone Esteban Nagel MD Primary Care Provider Immunizations Name Administration Dates Next Due Pfizer SARS-CoV-2 COVID-19, mRNA, LNP-S, preservative free 09/21/2020,08/31/2020 Surgical History Surgery Date Site/Laterality Comments TONSILLECTOMY ADENOIDECTOMY, BILATERAL MYRINGOTOMY AND TUBES PROCEDURE: IN TONSILLECTOMY & ADENOIDECTOMY <AGE 12 SECTION PROCEDURE: HISTORICAL DELIVERY TUBAL LIGATION PROCEDURE: HISTORICAL TUBAL LIGATION OTHER SURGICAL HISTORY 2019 PROCEDURE: HISTORY OTHER; COMMENT: liposuction Medical History Medical History Date Comments Anxiety state DX:Anxiety state Asthma DX:Asthma Abnormal cytological finding in specimen from cervix DX:Abnormal cytological find ing in specimen from cervix Family History Medical History Relation Name Comments No Known Problems Brother Warren Hypertension Father Tommy Colon cancer Maternal Grandfather Isaias Diabetes Maternal Grandmother Edel Hypertension Maternal Grandmother Edel No Known Problems Mother Iwona Arthritis Paternal Grandfather Warren Stroke Paternal Grandfather Warren Diabetes Paternal Grandmother Christy Hypertension Paternal Grandmother Christy Stroke Paternal Grandmother Christy No Known Problems Sister 1 Naysha No Known Problems Sister 2 Jesmarie Breast cancer Neg Hx Ovarian cancer Neg Hx Prostate cancer Neg Hx Relation Name Status Comments Brother Warren Alive Father Tommy Alive Maternal Grandfather Isaias Maternal Grandmother Edel Alive Mother Iwona Alive Paternal Grandfather Warren Paternal Grandmother Christy Sister 1 Naysha Alive Sister 2 Jesmarie Alive Social History Tobacco Use Types Packs/Day Years Used Date Smoking Tobacco: Former Cigarettes Q uit: 10/09/2014 Smokeless Tobacco: Never Alcohol Use Standard Drinks/Week Comments Yes 0 (1 standard drink = 0.6 oz pur e alcohol) Comments Unknown Sex and Gender Information Value Date Recorded Sex Assigned at Not on file Legal Sex Female 4:37 AM EST Gender Identity Not on file Sexual Orientation Not on file Obstetrics History Last Filed Vital Signs Vital Sign Reading Time Taken Comments Blood Pressure 120/82 08/18/2021 9:44 AM EDT Pulse 99 08/18/2021 9:44 AM EDT Temperature - - Respiratory Rate - - Oxygen Saturation - - Inhaled Oxygen Concentration - - Weight 108 kg (239 lb) 08/18/2021 9:44 AM EDT Height 177.8 cm (5' 10 ) 08/18/2021 9:44 AM EDT Body Mass Index 34.29 08/18/2021 9:44 AM EDT Plan of Treatment Health Maintenance Due Date Last Done Comments DTaP,Tdap,and Td Vaccines (1 - Tdap) 2008 Hepatitis B Vaccines (1 of 3 - 19+ 3-dose series) 2008 Depression Screening 02/12/2022 HIV Screening 02/12/2022 Hepatitis C Screening 02/12/2022 Social Influencers of Health Screening 02/12/2022 COVID-19 Vaccine (3 - 2023-2 5 season) 2023 09/21/2020, 08/31/2020 Influenza Vaccine (#1) 2023 Cervical Cancer Screening: P ap Smear 08/18/2024 08/18/2021, 09/27/2018 HIB Vaccines Aged Out No longer eligi ble based on patient's age to complete this topic HPV Vaccines Aged Out No longer eligi ble based on patient's age to complete this topic Hepatitis A Vaccines Aged Out No long er eligible based on patient's age to complete this topic IPV Vaccines Aged Out No longer eligi ble based on patient's age to complete this topic MMR Vaccines Aged Out No longer eligi ble based on patient's age to complete this topic Meningococcal ACWY Vaccine Aged Out N o longer eligible based on patient's age to complete this topic Meningococcal B Vaccine Aged Out No l onger eligible based on patient's age to complete this topic Pneumococcal Vaccine: Pediatrics (0 to 5 Years) and At-Risk Patients (6 to 64 Years) Aged Out No longer eligible b ased on patient's age to complete this topic RSV Immunization Patients Under 20 months Aged Out No longer eligible b ased on patient's age to complete this topic Varicella Vaccines Aged Out No longer eligible based on patient's age to complete this topic Procedures Procedure Name Priority Date/Time Associated Diagnosis Comments PAP SMEAR Routine 08/18/2021 from Last 3 Months or Most Recently Relevant to Health Maintenance Results * Pap smear (08/18/2021) 08/18/2021 Narrative HISTORICAL TESTING LAB RESULTING AGENCY - 08/26/2021 10:10 AM EDT [id number] THINPREP PAP, IMAGED: NEGATIVE FOR SQUAMOUS INTRAEPITHELIAL LESION AND MALIGNANCY. SARAH IS PRESENT. OLGA PARIKH(ASCP) (CASE ELECTRONICALLY SIGNED 08 26 2021) RESULT OF APTIMA HIGH RISK HPV ASSAY: HIGH RISK HPV: ??NEGATIVE (SEROTYPES 16,18,31,33,35,39,45,51,52,56,58,59,66,68) COMPLETED ON 2021-08-22 ADEQUACY: SATISFACTORY ENDOCERVICAL/TRANSFORMATION ZONE COMPONENT ABSENT. SOURCE: THINPREP PAP HPV ANY DX: ??REFLEX 16 AND 18, CERVICAL, IMAGED CLINICAL INFORMATION: HPV ANY DIAGNOSIS. HORMONES, PAP HX NEG 2018, LMP 07/20/2021, [Z01.419, Z12.4] [facility] LAB CYTOLOGY ORDERABLES Final Result HISTORICAL TESTING LAB RESULTING AGENCY from Last 3 Months or Most Recently Relevant to Health Maintenance Care Teams Psychiatric Technician Assistant Relationship Specialty Start Date End Date Esteban Nagel MD [address] [place] [address], [address] [place] [address] PCP - General Internal Medicine 10/09/16
== END 2024-06-17 15:07 | disposition home or self-care (01) ==
PROVIDERS: Physician Assistant; Emergency Provider Emergency Medicine; PCP Nurse Practitioner Adult Health
DX: M26.622 Arthralgia of left temporomandibular joint (principal); Z79.899 Other long term (current) drug therapy
CPT/HCPCS: 36415; 70450; 80048; 84702; 85025; 85652; 86140; 99282; 99284

== ENCOUNTER → 2024-06-17 13:33 | Outpatient (BNV) | payer MEDICAID, SELFPAY | PROVIDERS: Emergency Provider Emergency Medicine; PCP Nurse Practitioner Adult Health; Visit Provider Radiology Diagnostic Radiology | DX: R51.9 Headache, unspecified (principal) | CPT/HCPCS: 70450 ==

== ENCOUNTER 2024-07-31 10:05 | Emergency (ER) | payer MEDICAID, SELFPAY ==
[2024-07-31] VITALS (8 sets, daily range): BP systolic 95–137; BP diastolic 59–89; PULSE 58–89; RESP 16–18; TEMP 36.6–37.1; O2SAT 97–99; BMI 32.4
--- NOTE | ~2024-07-31 | CT_ITS ---
EXAMINATION: CT HEAD WITHOUT CONTRAST CLINICAL INFORMATION: blurred vision, dizziness COMPARISON: June 17, 2024 TECHNIQUE: Contiguous axial imaging was performed from the skull base to vertex without intravenous administration of contrast. This CT examination was performed using dose optimization techniques as appropriate, variously including the following: *Automated exposure control *Adjustment of mA and/or kV according to patient size (this includes techniques or standardized protocols for targeted exams where dose is matched to indication/reason for exam; i.e. extremities or head) *Use of iterative reconstruction technique DLP: 786 mGy-cm FINDINGS: No acute intracranial hemorrhage, mass effect, midline shift, hydrocephalus or herniation. Coto-white matter differentiation is normal. Sellar/suprasellar region demonstrated no gross masses. Craniocervical junction demonstrates normal position cerebellar tonsils. The bony calvarium is intact. No air-fluid levels in the paranasal sinuses. For pneumatization of the left frontal sinus. Tympanic cavities and mastoid air cells are aerated. Accessory parotid glands bilaterally. Metallic piercing right nostril. CT/CT head/brain wo IV con IMPRESSION: No acute or structural brain abnormality by CT. Negative exam. Electronically signed by: Cole Youssef MD 07/31/2024 02:48 PM EDT
--- NOTE | ~2024-07-31 | XR_ITS ---
EXAMINATION: XR CHEST CLINICAL INFORMATION: dizziness, weakness COMPARISON: October 25, 2021 TECHNIQUE: 2 views of the chest were obtained. FINDINGS: No consolidation, pleural effusion or pneumothorax. No hyperinflation. Cardia mediastinal silhouette size is normal. Small marginal osteophyte formation throughout the axial skeleton. Mild S-shaped curvature of the mid thoracic spine. Metallic piercing overlapping the breast shadow, bilaterally. XR/XR chest 2V IMPRESSION: No acute airspace disease. Mild scoliosis, thoracic spine. Electronically signed by: Cole Youssef MD 07/31/2024 11:35 AM EDT
--- NOTE | 2024-07-31 10:09 | ED_ITS ---
HPI - General Adult General Chief complaint: Dizziness Stated complaint: SOB, lightheaded Time Seen by Provider: 07/31/24 11:02 Source: patient Mode of arrival: ambulatory Limitations: no limitations History of Present Illness ED Provider: Michelle Maza PA-C HPI narrative: 33 y.o female with a past medical history of asthma and fibromyalgia presents to the ED with a chief complaint of intermittent blurry vision, dizziness, and headache. Patient reports that she began having these symptoms on Sunday. She states that she took 800 mg of ibuprofen today to help the headache and it gave her some relief. 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 Denies OCP use and any recent travel. Endorses limited ETOH use, and drinking one white claw last night. Patient reports that she used to vape and quit one month ago. Denies experiencing a similar episode to this before. MD complaint: Dizziness and headache Onset (ago): day(s) (4) Related Data Previous Rx's ?Medication ?Instructions ?Recorded dextromethorphan 5 mg-guaifenesin 5 ml PO Q4-6H PRN cough #237 mL 05/27/20 50 mg/5 mL oral liquid (Robitussin Cough-Chest Congestion DM) prednisone 10 mg tablet 30 mg (3 x 10 mg) PO DAILY 30 days 07/12/20 #90 tabs lorazepam 0.5 mg tablet (Ativan) 0.5 mg PO BEDTIME PRN sleep #7 tabs 06/09/21 omeprazole 20 mg capsule,delayed 20 mg PO DAILY 30 days #30 caps 10/25/21 release alprazolam 0.5 mg tablet 0.5 mg PO BID PRN anxiety/sleep 01/04/23 #20 tabs Allergies Allergy/AdvReac Type Severity Reaction Status Date / Time No Known Allergies Allergy Verified 07/31/24 10:12 Review of Systems 2 Constitutional: Constitutional: Reports no additional constitutional complaints, Denies chills, Denies fever(s), Reports headache(s) and Denies night sweats Eyes: Eyes: Reports no additional eye complaints, Reports blurry vision (intermittent), Denies change in vision, Denies diplopia, Denies eye discharge, Denies loss of vision and Denies eye pain ENT: Reports dizziness and Reports headache(s) Cardiovascular: Cardiovascular: Reports no additional cardiovascular complaints, Denies chest pain, Denies lightheadedness, Denies Loss of Consciousness and Reports dyspnea Respiratory: Respiratory: Reports no additional respiratory complaints and Reports dyspnea Gastrointestinal: Gastrointestinal: Reports no additional gastrointestinal complaints, Denies abdominal pain, Denies melena, Denies hematochezia, Denies change in bowel habits and Denies change in stool character Genitourinary: Genitourinary: Denies hematuria, Denies urinary frequency, Denies dysuria, Denies urinary incontinence, Denies urinary hesitancy and Denies urinary urgency Musculoskeletal: Musculoskeletal: Reports no additional musculoskeletal complaints, Denies numbness and Denies tingling Neurologic: Reports dizziness, Reports headache(s), Denies loss of vision, Denies numbness and Denies tingling Psychiatric: Psychiatric: Reports no additional psychiatric complaints Endocrine: Endocrine: Reports no additional endocrine complaints Hematologic/Lymphatic: Hematologic/Lymphatic: Reports no additional hematologic/lymphatic complaints Allergic/Immunologic: Allergic/Immunologic: Reports no additional allergic/immunologic complaints [facility] Past Medical History Attestation statement: The following information was validated with the patient. Source: old records reviewed and nursing notes reviewed Medical History Fibromyalgia Fibromyalgia COVID-19 Asthma Surgical History Hx of section H/O tubal ligation Social History Social History Household Members: Family Housing: House Do you presently have visiting nurse or other home services: No Alcohol intake: current Alcohol intake frequency: holidays/special occasions only Patient Tobacco Use Status: Former Tobacco user Advance Directives Date on File: 05/28/20 service: No Current occupational status: employed Physical Exam ED Vital Signs: Vital Signs - 24 hr 07/31/24 10:09 07/31/24 12:56 07/31/24 14:18 Temperature 97.8 F Pulse Rate 89 58 88 Respiratory Rate 18 18 16 Blood Pressure 130/82 95/59 L 126/66 Pulse Oximetry 98 97 98 Oxygen Delivery Method Room Air Room Air Room Air 07/31/24 14:59 07/31/24 15:01 07/31/24 15:03 Temperature Pulse Rate 64 63 64 Respiratory Rate Blood Pressure 119/73 132/81 134/89 Pulse Oximetry Oxygen Delivery Method 07/31/24 16:08 07/31/24 16:29 Temperature 98.7 F Pulse Rate 63 63 Respiratory Rate 16 16 Blood Pressure 137/83 137/83 Pulse Oximetry 99 99 Oxygen Delivery Method Room Air Room Air BMI result Body Mass Index 32.4 Const General: cooperative, no acute distress, alert and awake Nutritional Appearance: well nourished Orientation/consciousness: patient oriented x3 HENMT Head: Yes normal to inspection and Yes atraumatic Ears: hearing grossly normal bilaterally and external ears normal General nose exam: Normal external nose present, no nasal discharge noted and no epistaxis Face and sinus: Yes normal facial exam, No abrasion and No laceration Mouth: Normal oral and palatal mucosa present, no drooling and no muffled voice Eyes General: appearance normal, both eyes and all related structures Periorbital: periorbital findings normal Eyelids: Yes eyelids normal Conjunctivae: conjunctivae normal Pupils: Equal, round and reactive pupils present EOM: EOMs intact bilaterally Neck Neck: Yes normal visual inspection, Yes full ROM and Yes no lymphadenopathy Resp Effort & Inspection: normal respiratory effort and able to speak in complete sentences Neuro General: patient oriented x3, moves all extremities and CN's II-XI intact bilaterally Cranial nerves: Yes Equal, round and reactive pupils present Cognition (Neuro): normal cognition Extrem General: Yes normal to inspection, Yes full ROM and Yes capillary refill normal Psych Appearance: grossly normal Mental Status: mental status grossly normal Affect: normal affect Attitude: cooperative Thought process: Normal thought process present Thought content: Normal thought content present Insight: Good insight present (Psych) Course Course Course Narrative: This is a rapid medical exam performed by Larissa Parisi NP: Additional HPI, ROS, PE not included below will be deferred to primary provider. 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 Lightheadedness began a few days ago. Plan: EKG, labs, viral panel Medications Administered Discontinued Medications Generic Name Dose Route Start Last Admin Trade Name Freq PRN Reason Stop Dose Admin Diazepam 2.5 mg 05/22/25 15:12 07/31/24 15:20 Diazepam 10 Mg/2 Ml Cartridge IVPUSH 07/31/24 15:13 2.5 mg STAT STA Administration Sodium Chloride 1,000 mls @ 999 mls/hr 07/31/24 13:00 07/31/24 14:03 Ns IV 07/31/24 14:00 Infused .Q1H1M BERT Infusion Sodium Chloride 1,000 mls @ 999 mls/hr 07/31/24 15:15 07/31/24 16:29 Ns IV 07/31/24 16:15 Infused .Q1H1M BERT Infusion Ketorolac Tromethamine 15 mg 07/31/24 15:12 07/31/24 15:19 Ketorolac Tromethamine 15 Mg/Ml Vial IVPUSH 07/31/24 15:13 15 mg ONCE ONE Administration Ondansetron HCl 4 mg 07/31/24 12:57 07/31/24 13:09 Ondansetron Hcl 4 Mg/2 Ml Vial IVPUSH 07/31/24 12:58 4 mg ONCE ONE Administration Medical Decision Making Medical Decision Making MDM Narrative: Patient is a 33 year old assigned female at with a history of asthma presenting to the emergency department today with a headache, intermittent dizziness, intermittent blurry vision, and shortness of breath. Patient's physical exam was unremarkable. Patient non-toxic appearing, able to ambulate without assistance or issue. Patient's blood work was unremarkable. Patient's urine showed no acute process. Patient's EKG was unremarkable. Patient's chest x-ray and head CT showed no acute process. I explained my physical exam findings as well as all test results to the patient. I answered all questions asked by the patient. Patient received IV fluids, valium, and toradol which, upon re- evaluation, she stated it helped her symptoms significantly. I stressed the importance of the patient taking her medication as directed (either prescribed or as the over the counter packaging recommends). I stressed the importance of the patient following up with her primary care provider. I stressed the importance of the patient returning to the emergency department immediately if her symptoms were to worsen or if she were to develop any dizziness, shortness of breath, difficulty breathing, chest pain, blurry vision, loss of vision, nausea, vomiting, abdominal pain, fever, chills, back pain, or any other complaints. Patient verbalized agreement and understanding with this treatment plan and discharge. Differential Diagnosis Differential Diagnoses: The differential diagnosis associated with the presentation includes Headache Dizziness Migraine Electrolyte abnormality Admission/Observation Consideration of admission/observation: Escalation of care including admission/observation considered Patient would have been admitted to the hospital had her work up had any findings where hospital admission was appropriate and her clinical presentation warranted hospital admission. Lab Data [facility] Lab Attestation statement: I reviewed the patient's lab results. My interpretation of these results are in the [facility] Rationale portion of this note. 07/31/24 10:23 07/31/24 10:23 Labs: Lab Results 07/31/24 07/31/24 Range/Units 10:23 12:47 WBC 7.4 (4.8-10.8) X10*3/uL RBC 4.62 (4.20-5.50) X10*6/uL Hgb 14.4 (12.0-16.0) g/dl Hct 42.8 (37.0-47.0) % MCV 92.6 (80.0-98.0) fL MCH 31.2 (27.0-33.0) pg MCHC 33.6 (31.0-35.0) g/dl RDW 12.9 (11.0-16.0) % Plt Count 230 (160-400) X10*3/uL MPV 10.8 (9.4-12.3) fL Immature Gran % (Auto) 0.1 (0.0-0.4) % Neut % (Auto) 63.9 (45-73) % Lymph % (Auto) 29.7 (20-40) % Cache % (Auto) 4.7 (2-11) % Eos % (Auto) 1.1 (0-4) % Baso % (Auto) 0.5 (0-2) % Lymph # (Auto) 2.2 (1.2-4.9) X10*3/uL Cache # (Auto) 0.4 (0.1-1.2) X10*3/uL Eos # (Auto) 0.1 (0.0-0.4) X10*3/uL Baso # (Auto) 0.0 (0.0-0.2) X10*3/uL Abs Immat Gran (auto) 0.01 (0.00-0.03) X10*3/uL Absolute Neuts (auto) 4.7 (2.0-8.3) x10*3/uL Absolute Nucleated RBC 0.000 (0.0-0.012) X10*3/uL Nucleated RBC % (auto) 0.0 (0.0-0.2) /100WBC Sodium 143 (135-145) mmol/L Potassium 4.2 (3.3-5.1) mmol/L Chloride 107 (96-108) mmol/L Carbon Dioxide 26 (22-29) mmol/L Anion Gap 14 (12-20) BUN 16 (9-16) mg/dL Creatinine 0.88 (0.5-1.4) mg/dL Estim Creat Clear Calc 116.6 Estimated GFR > 60 Random Glucose 141 H (60-115) mg/dL Calcium 9.5 D (8.4-10.2) mg/dL Magnesium 1.8 (1.6-2.6) mg/dL Total Bilirubin 0.5 (0.0-1.0) mg/dL AST 36 H (5-31) U/L ALT 49 H (0-31) U/L Alkaline Phosphatase 138 H (39-117) U/L Troponin I High Sens < 2.7 (<3.5-17.0) ng/L Total Protein 7.4 (6.5-8.0) g/dL Albumin 4.3 (3.5-5.0) g/dL Lipase 36 (8-78) U/L Beta HCG, Quant < 2 mIU/mL Urine Color Yellow Urine Appearance Clear Urine pH 6.0 (5.0-9.0) Ur Specific Jackson >= 1.030 H (1.005-1.025) Urine Protein Negative (Neg-Trace) mg/dL Urine Glucose (UA) Negative (Negative) mg/dL Urine Ketones Trace (Negative) mg/dL Urine Blood Negative (Negative) Urine Nitrite Negative (Negative) Ur Leukocyte Esterase Negative (Negative) Influenza Type A (PCR) NEGATIVE (Negative) Influenza Type B (PCR) NEGATIVE (Negative) RSV RNA Qual (PCR) NEGATIVE (Negative) SARS-CoV-2 RNA (RT-PCR) NEGATIVE (Negative) Independent Interpretation I performed an independent interpretation of an: EKG, Plain X-Ray and CT Scan Interpretation: My interpretation is in agreement with the radiologist's impression of these imaging studies. L EXAMINATION: XR CHEST CLINICAL INFORMATION: dizziness, weakness COMPARISON: October 25, 2021 TECHNIQUE: 2 views of the chest were obtained. FINDINGS: No consolidation, pleural effusion or pneumothorax. No hyperinflation. Cardia mediastinal silhouette size is normal. Small marginal osteophyte formation throughout the axial skeleton. Mild S-shaped curvature of the mid thoracic spine. Metallic piercing overlapping the breast shadow, bilaterally. XR/XR chest 2V IMPRESSION: No acute airspace disease. Mild scoliosis, thoracic spine. Electronically signed by: Cole Youssef MD 07/31/2024 11:35 AM EDT RP Dictated By: Cole Wilson MD Signed By: Electronically signed by Cole Benítez MD 07/31/24 1135 Report Number: [id number]: Total DLP = 786.00 mGy-cm EXAMINATION: CT HEAD WITHOUT CONTRAST CLINICAL INFORMATION: blurred vision, dizziness COMPARISON: June 17, 2024 TECHNIQUE: Contiguous axial imaging was performed from the skull base to vertex without intravenous administration of contrast. This CT examination was performed using dose optimization techniques as appropriate, variously including the following: *Automated exposure control *Adjustment of mA and/or kV according to patient size (this includes techniques or standardized protocols for targeted exams where dose is matched to indication/reason for exam; i.e. extremities or head) *Use of iterative reconstruction technique DLP: 786 mGy-cm FINDINGS: No acute intracranial hemorrhage, mass effect, midline shift, hydrocephalus or herniation. Coto-white matter differentiation is normal. Sellar/suprasellar region demonstrated no gross masses. Craniocervical junction demonstrates normal position cerebellar tonsils. The bony calvarium is intact. No air-fluid levels in the paranasal sinuses. For pneumatization of the left frontal sinus. Tympanic cavities and mastoid air cells are aerated. Accessory parotid glands bilaterally. Metallic piercing right nostril. CT/CT head/brain wo IV con IMPRESSION: No acute or structural brain abnormality by CT. Negative exam. Electronically signed by: Cole Youssef MD 07/31/2024 02:48 PM EDT RP Dictated By: Cole Wilson MD Signed By: Electronically signed by Cole Benítez MD 07/31/24 1448 I independently interpreted this EKG and am in agreement with the below findings: Vent. Rate: 78 BPM Atrial Rate: 78 BPM P-R Int: 132 ms QRS Dur: 92 ms QT Int: 380 ms P-R-T Axes: 47 34 33 degrees QTcB Int: 433 ms Sinus rhythm with marked sinus arrhythmia When compared with ECG of 25-Oct-2021 19:21, T wave inversion no longer evident in Anterior leads DD/ 1013 Radiology Impression Discussion of test interpretation with radiology: I have reviewed the radiologist's reading. Critical Care Time Critical Care Time Critical Care Time: Yes Total Critical Care Time: 34 Attestation: I spent 34 minutes of Critical Care Time with this patient. This does not include time spent on separately reported billable procedures. Discharge Plan Discharge Clinical Impression: Dizziness, Light-headedness, Headache Patient Disposition: Home, Self-Care Instructions: Acute Headache (DC), Lightheadedness (ED), Dizziness (ED) Additional Instructions: Your work up today was reassuring there is no emergent process going on. Drink plenty of electrolyte containing fluids. Follow up with your primary care provider. Return to the emergency department immediately if your symptoms worsen or if you develop any numbness, tingling, dizziness, shortness of breath, difficulty breathing, chest pain, blurry vision, loss of vision, nausea, vomiting, abdominal pain, fever, chills, back pain, or any other complaints. Please see the information below about our Patient Portal. If you are not yet enrolled in the [facility] Patient Portal, you will receive an enrollment email invitation following your visit to any [facility] setting. You may also self-enroll in the Patient Portal by visiting our website: [email or web address] The following information is required to access the Patient Portal: - Your [facility] Medical Record Number - Your personal home email address (must match what is in your electronic medical record, Registration staff can assist with this) - Name - Date of Capabilities of the Patient Portal: - Message some providers - View upcoming appointments - Access your health summary, medical history, and visit history - View current conditions and allergies - View procedure and lab results - View your medications, including guidelines, side effects, and precautions - Complete pre-appointment questionnaires requested by your provider - Ready summary reports of your office visits and procedures To access the Patient Portal Mobile [employer], follow these directions: - Search [employer] in the [employer] Store or [employer] Store - Download the [employer]ardo - Search for [facility] - Enter your login/password Prescriptions: No Action Robitussin Cough-Chest Jose Luis DM 5-50 mg/5 mL liquid 5 ml PO Q4-6H PRN (Reason: cough) Qty: 237 0RF lorazepam [Ativan] 0.5 mg tablet 0.5 mg PO BEDTIME PRN (Reason: sleep) Qty: 7 0RF omeprazole 20 mg capsule,delayed release(DR/EC) 20 mg PO DAILY 30 Days Qty: 30 0RF alprazolam 0.5 mg tablet 0.5 mg PO BID PRN (Reason: anxiety/sleep) Qty: 20 0RF prednisone 10 mg tablet 30 mg PO DAILY 30 Days Qty: 90 3RF Referrals: Melonie Garcia NP [Primary Care Provider] - Stand Alone Forms: Work/School Release Interventions: ED Discharge Assessment Last Done: 07/31/24 16:29 Discharge Date/Time: 07/31/24 16:30 Print Language: Chadian
--- NOTE | 2024-07-31 10:13 | ECG_ITS ---
Test Reason : LIGHTHEADED Blood Pressure : */* mmHG Vent. Rate : 78 BPM Atrial Rate : 78 BPM P-R Int : 132 ms QRS Dur : 92 ms QT Int : 380 ms P-R-T Axes : 47 34 33 degrees QTcB Int : 433 ms Sinus rhythm with marked sinus arrhythmia Otherwise normal ECG When compared with ECG of 25-Oct-2021 19:21, T wave inversion no longer evident in Anterior leads Referred By: Gely Parisi Electronically Signed By: Gage Castro
[2024-07-31 10:27] LABS: MANUAL DIFF FLAG NO
[2024-07-31 10:32] LABS: Basophils Percent Auto 0.5 % (0-2); Eosinophils Absolute Auto 0.1 X10*3/uL (0.0-0.4); Eosinophils Percent Auto 1.1 % (0-4); Hematocrit 42.8 % (37.0-47.0); Hemoglobin 14.4 g/dl (12.0-16.0); Imm Gran Abs Auto 0.01 X10*3/uL (0.00-0.03); Imm Gran Pct Auto 0.1 % (0.0-0.4); Lymphocytes Absolute Auto 2.2 X10*3/uL (1.2-4.9); Lymphocytes Percent Auto 29.7 % (20-40); Mean Corpuscular HGB Conc 33.6 g/dl (31.0-35.0); Mean Corpuscular Hemoglobin 31.2 pg (27.0-33.0); Mean Corpuscular Volume 92.6 fL (80.0-98.0); Mean Platelet Volume 10.8 fL (9.4-12.3); Monocytes Absolute Auto 0.4 X10*3/uL (0.1-1.2); Monocytes Percent Auto 4.7 % (2-11); Neutrophils Absolute Auto 4.7 x10*3/uL (2.0-8.3); Neutrophils Percent Auto 63.9 % (45-73); Platelet Count 230 X10*3/uL (160-400); Red Blood Count 4.62 X10*6/uL (4.20-5.50); Red Cell Distribution Width 12.9 % (11.0-16.0); White Blood Count 7.4 X10*3/uL (4.8-10.8)
[2024-07-31 10:59] LABS: Alanine Aminotransferase 49 U/L (0-31); Albumin Level 4.3 g/dL (3.5-5.0); Anion Gap 14 (12-20); Aspartate Amino Transferase 36 U/L (5-31); Bilirubin Total 0.5 mg/dL (0.0-1.0); Blood Urea Nitrogen 16 mg/dL (9-16); Calcium 9.5 mg/dL (8.4-10.2); Carbon Dioxide 26 mmol/L (22-29); Chloride 107 mmol/L (96-108); Creatinine Clr Calc Pharmacy 116.6; Estimated Glomerular Filt Rate > 60; Glucose Random 141 mg/dL (60-115); HCG Quantitative < 2 mIU/mL; Magnesium 1.8 mg/dL (1.6-2.6); Potassium 4.2 mmol/L (3.3-5.1); Sodium 143 mmol/L (135-145); Total Protein 7.4 g/dL (6.5-8.0)
[2024-07-31 11:07] LABS: Influenza A PCR NEGATIVE (Negative); Influenza B PCR NEGATIVE (Negative); Resp Syncy Virus RNA Qual PCR NEGATIVE (Negative); SARS COV2 PCR INHOUSE NEGATIVE (Negative)
--- OUTSIDE RECORDS SUMMARY | 2024-07-31 11:33 | XMS_ITS | Clinical Summary ---
Author Organization [employer] [facility] it Address [address] [place] [address] Care Team Providers Care Typesetters Printer Name Role Phone Esteban Nagel MD Primary Care Provider Immunizations Name Administration Dates Next Due Pfizer SARS-CoV-2 COVID-19, mRNA, LNP-S, preservative free 09/21/2020,08/31/2020 Surgical History Surgery Date Site/Laterality Comments TONSILLECTOMY ADENOIDECTOMY, BILATERAL MYRINGOTOMY AND TUBES PROCEDURE: HI TONSILLECTOMY & ADENOIDECTOMY <AGE 12 SECTION PROCEDURE: [...] - 2023-2 5 season) 2023 09/21/2020, 08/31/2020 Cervical Cancer Screening: P ap Smear 08/18/2024 08/18/2021, 09/27/2018 Influenza Vaccine (Season Ended) 2024 HIB Vaccines Aged Out No longer eligi [...] RESULTING AGENCY - 08/26/2021 10:10 AM EDT [id number] THINPREP PAP, IMAGED: NEGATIVE FOR SQUAMOUS INTRAEPITHELIAL [...] 2018, LMP 07/20/2021, [Z01.419, Z12.4] Xena Youngblood [facility] CYTOLOGY ORDERABLES Final Result HISTORICAL TESTING LAB RESULTING AGENCY from Last 3 Months or Most Recently Relevant to Health Maintenance Care Teams Typesetters Printer Relationship Specialty Start Date End Date Esteban Nagel MD [address] [place] [address], [address] [place] [address] PCP - General Internal Medicine 10/09/16
--- OUTSIDE RECORDS SUMMARY | 2024-07-31 11:33 | XMS_ITS | Referral Summary ---
Author Organization [facility] Address [address] [place] [address] Care Team Providers Care Silk Screen Frame Assembler Name Role Phone Melonie Garcia Primary Care Provider [phone] Allergies Active Allergy Reactions Criticality Noted Date [...] Plan of Treatment Not on file Insurance [employer] Care Teams Silk Screen Frame Assembler Relationship Specialty Start Date End Date Melonie Garcia [address] [address] PCP - General 09/30/19
--- OUTSIDE RECORDS SUMMARY | 2024-07-31 11:34 | XMS_ITS | Clinical Summary ---
Author Organization [facility] Address [address] [place] [address] Care Team Providers Care Produce Service Team Member Name Role Phone Melonie Garcia Primary Care Provider [phone] Allergies Active Allergy Reactions Criticality Noted Date [...] patient's age [id number] [facility] Care Teams Produce Service Team Member Relationship Specialty Start Date End Date Melonie Garcia [address] [place] [id number] [facility] - General 09/30/19
[2024-07-31 11:47] LABS: Alkaline Phosphatase 138 U/L (39-117); Lipase 36 U/L (8-78)
[2024-07-31 12:20] LABS: Troponin-I High Sensitivity < 2.7 ng/L (<3.5-17.0)
[2024-07-31 13:01] LABS: Appearance Urine Clear; Color Urine Yellow; Glucose Urine UA Negative (Negative); Leukocyte Esterase Urine Negative (Negative); Nitrite Urine Negative (Negative); Specific Gravity - Urine >= 1.030 (1.005-1.025); Urine Blood Negative (Negative); Urine Ketones Trace mg/dL (Negative); Urine Protein Negative (Neg-Trace)
[2024-07-31] MEDS: 0.9 % Sodium Chloride 1,000 ML 999 ML IV ×2 (13:09→15:21)
[2024-07-31] MEDS: ondansetron HCL 4 MG/2 ML VIAL IVPUSH (13:09)
[2024-07-31] MEDS: Ketorolac Tromethamine 15 MG/ML VIAL IVPUSH (15:19)
[2024-07-31] MEDS: diazePAM 10 MG/2 ML CARTRIDGE 2.5 MG IVPUSH (15:20)
== END 2024-07-31 16:30 | disposition home or self-care (01) ==
PROVIDERS: Physician Assistant Medical; Registered Nurse Emergency; Emergency Provider Emergency Medicine; PCP Nurse Practitioner Adult Health
DX: R42 Dizziness and giddiness (principal); R51.9 Headache, unspecified; H53.8 Other visual disturbances; R06.02 Shortness of breath; Z03.818 Encounter for observation for suspected exposure to other biological agents ruled out; J45.909 Unspecified asthma, uncomplicated; Z79.899 Other long term (current) drug therapy
CPT/HCPCS: 0241U; 70450; 71046; 80053; 81003; 83690; 83735; 84484; 84702; 85025; 93005; 96361; 96374; 96375; 99284; 99285; J1885; J2405; J3360

== ENCOUNTER → 2024-07-31 10:13 | Outpatient (BNV) | payer MEDICAID, SELFPAY | PROVIDERS: Emergency Provider Emergency Medicine; PCP Nurse Practitioner Adult Health; Visit Provider Internal Medicine Cardiovascular Disease | DX: I49.9 Cardiac arrhythmia, unspecified (principal) | CPT/HCPCS: 93010 ==

== ENCOUNTER → 2024-07-31 11:03 | Outpatient (BNV) | payer MEDICAID, SELFPAY | PROVIDERS: PCP Nurse Practitioner Adult Health; Visit Provider Radiology Diagnostic Radiology | DX: R42 Dizziness and giddiness (principal); H53.8 Other visual disturbances; R53.1 Weakness | CPT/HCPCS: 70450; 71046 ==